=== PATIENT | male | born 1935 | race Caucasian/White ===

== ENCOUNTER 2020-07-18 15:33 | Emergency (ER) | payer MEDICARE, BC ==
[2020-07-18 16:57] LABS: CHLORIDE,CL 103 mmol/L (98-107); SODIUM,NA 140 mmol/L (136-145)
--- NOTE | 2020-07-18 17:17 | EDM.PDOC ---
ED HPI GENERAL MEDICAL PROBLEM - General Chief Complaint: Lower Extremity Injury/Pain Stated Complaint: swollen leg Time Seen by Provider: 07/18/20 15:45 Source of Information: Reports: Patient History Limitations: Reports: No Limitations - History of Present Illness INITIAL COMMENTS - FREE TEXT/NARRATIVE: Pt presents for swelling in RLE No trauma No fever Began about 4 days ago Had appointment tomorrow but assisted living nurse told him to come to ER today Onset: Gradual Duration: Day(s): Location: Reports: Lower Extremity, Right Severity: Moderate - Related Data Allergies Allergy/AdvReac Type Severity Reaction Status Date / Time hydrocodone Allergy Rash Verified 07/18/20 15:35 Home Meds: Home Meds Aspirin [Halfprin] 81 mg PO DAILY 09/26/14 [History] Calc/D3/Mag/Zn/[place]/Franc[place]/Cascade [Calcium 600 MG Plus Vit D] 1 tab PO BID 09/26/14 [History] Flaxseed [Flaxseed Oil] 1,000 mg PO DAILY 09/26/14 [History] Furosemide [Lasix] 40 mg PO DAILY 09/26/14 [History] Lisinopril 2.5 mg PO DAILY 09/26/14 [History] Lutein/Min/Vit C/Vit E Acetate [Ocuvite Lutein] 1 cap PO DAILY 09/26/14 [History] Metoprolol Succinate [Toprol Xl] 25 mg PO DAILY 09/26/14 [History] Multivitamin [Multi-Vitamin Daily] 1 tab PO DAILY 09/26/14 [History] Nitroglycerin [Nitrostat] 1 tab SL ASDIRECTED PRN 09/26/14 [History] [place]-3 Fatty Acids [[place]-3] 1,000 mg PO BID 09/26/14 [History] Ubidecarenone [Coenzyme Q10] 100 mg pe PO BID 09/26/14 [History] Acetaminophen [Tylenol Extra Strength] 500 mg PO BID 07/18/20 [History] Gabapentin [Neurontin] 100 mg PO DAILY 07/18/20 [History] Levothyroxine Sodium [Synthroid] 75 mcg PO DAILY 07/18/20 [History] Omeprazole Magnesium [Prilosec Otc] 20 mg PO DAILY 07/18/20 [History] Rivaroxaban [Xarelto] 20 mg PO DAILY 07/18/20 [History] atorvaSTATin Calcium [Lipitor] 40 mg PO DAILY 07/18/20 [History] Social & Family History - Tobacco Use Smoking Status *Q: Never Smoker Second Hand Smoke Exposure: No - Caffeine Use Caffeine Use: Reports: Coffee Other Caffeine Use: 1 cup daily - Recreational Drug Use Recreational Drug Use: No Review of Systems - Review of Systems Review Of Systems: See Below Constitutional: Reports: No Symptoms Respiratory: Reports: No Symptoms Cardiovascular: Reports: No Symptoms GI/Abdominal: Reports: No Symptoms Musculoskeletal: Reports: Other (RLW swelling) ED EXAM, GENERAL - Physical Exam Exam: See Below General Appearance: Alert, WD/WN, No Apparent Distress Respiratory/Chest: Lungs Clear Cardiovascular: Regular Rate, Rhythm Extremities: Pedal Edema, Other (RLE with edema No erythema No open areas No skin lesions non-tender) Course - Vital Signs Last Recorded V/S: Last Vital Signs Temp 97.9 F 07/18/20 15:49 Pulse 85 07/18/20 15:49 Resp 20 07/18/20 15:49 BP 150/72 H 07/18/20 15:49 Pulse Ox 97 07/18/20 15:49 - Orders/Labs/Meds Orders: Active Orders 24 hr Category Date Time Status Venous Doppler Lwr Ext Rt [US] Stat Exams 07/19/20 10:30 Ordered Labs: Laboratory Tests 07/18/20 07/18/20 Range/Units 16:30 16:30 WBC 6.2 (4.0-10.2) K/uL RBC 3.84 L (4.33-5.41) M/uL Hgb 12.0 L D (13.1-16.8) g/dL Hct 36.8 L (39.0-49.0) % MCV 95.8 D (84.0-98.0) fL MCH 31.3 (28.2-33.3) pg MCHC 32.6 (31.7-36.0) g/dL RDW 14.2 H (11.2-14.1) % Plt Count 123 L D (150-350) K/uL Neut % (Auto) 69.6 (45.0-80.0) % Lymph % (Auto) 14.6 (10.0-50.0) % [place] % (Auto) 13.0 (2.0-14.0) % Eos % (Auto) 2.2 (0.0-5.0) % Baso % (Auto) 0.6 (0.0-2.0) % Neut # (Auto) 4.34 (1.40-7.00) K/uL Lymph # (Auto) 0.91 (0.50-3.50) K/uL [place] # (Auto) 0.81 (0.00-1.00) K/uL Eos # (Auto) 0.14 (0.00-0.50) K/uL Baso # (Auto) 0.04 (0.00-0.20) K/uL Sodium 140 (136-145) mmol/L Potassium 4.0 (3.5-5.1) mmol/L Chloride 103 (98-107) mmol/L Carbon Dioxide 28.0 (21.0-32.0) mmol/L BUN 28 H (7-18) mg/dL Creatinine 0.94 (0.51-1.17) mg/dL Est Cr Clr Drug Dosing 61.19 mL/min Estimated GFR (MDRD) > 60 mL/min Glucose 154 H (74-106) mg/dL Calcium 9.1 (8.5-10.1) mg/dL Total Bilirubin 0.8 (0.2-1.0) mg/dL AST 19 (15-37) U/L ALT 21 (12-78) U/L Alkaline Phosphatase 60 (46-116) IU/L Total Protein 6.6 (6.4-8.2) g/dL Albumin 3.3 L (3.4-5.0) g/dL - Re-Assessments/Exams Free Text/Narrative Re-Assessment/Exam: 07/18/20 17:15 Pt stable in ER See lab RLE US scheduled for tomorrow 10:30 AM Departure - Departure Time of Disposition: 17:20 Disposition: Home, Self-Care 01 Clinical Impression: Right leg swelling - Discharge Information *PRESCRIPTION DRUG MONITORING PROGRAM REVIEWED*: Not Applicable *COPY OF PRESCRIPTION DRUG MONITORING REPORT IN PATIENT ELI: Not Applicable Referrals: Eden Huff NP [Primary Care Provider] - Additional Instructions: To Xray in AM for US of RLE Sepsis Event Note (ED) - Evaluation Sepsis Screening Result: No Definite Risk - Focused Exam Vital Signs: Vital Signs Temp Pulse Resp BP Pulse Ox 07/18/20 15:49 97.9 F 85 20 150/72 H 97 - My Orders Last 24 Hours: My Active Orders 07/19/20 10:30 Venous Doppler Lwr Ext Rt [US] Stat - Assessment/Plan Last 24 Hours: My Active Orders 07/19/20 10:30 Venous Doppler Lwr Ext Rt [US] Stat
== END 2020-07-18 17:27 | disposition home or self-care (01) ==
LOC: LL.ED 15:33
DX: M79.89 Other specified soft tissue disorders (principal); Z88.5 Allergy status to narcotic agent; Z79.82 Long term (current) use of aspirin; Z79.899 Other long term (current) drug therapy; Z79.01 Long term (current) use of anticoagulants
CPT/HCPCS: 36415; 80053; 85025; 99283

== ENCOUNTER 2020-09-11 12:32 | Inpatient (IN) | payer MEDICARE, BC ==
--- NOTE | 2020-09-11 12:52 | EDM.PDOC ---
ED HPI GENERAL MEDICAL PROBLEM - General Chief Complaint: Respiratory Problem Stated Complaint: RESPIRATORY/COVID + Time Seen by Provider: 09/11/20 12:43 Source of Information: Reports: Patient, EMS, Family History Limitations: Reports: Other (Does respond to questions/prefers to keep eyes shut/hard of hearing) - History of Present Illness INITIAL COMMENTS - FREE TEXT/NARRATIVE: Patient comes to us from [facility] with history of recently diagnosed Covid infection. Experiencing worsening respiratory complaints/SOB. Patient is DNR/DNI when asked about code status. Hard of hearing. Complains of some back pain Daughters report that patient felt well two nights ago. He started to complain of some back pain and GI upset yesterday. Did not complain of SOB/cough/fever. No URI complaints. No emesis/loose stools. No new pain complaints otherwise. No observed confusion. - Related Data Allergies Allergy/AdvReac Type Severity Reaction Status Date / Time hydrocodone Allergy Other Verified 09/11/20 13:19 Home Meds: Home Meds Acetaminophen [Tylenol] 2 tab PO DAILY 09/11/20 [History] Flaxseed Oil [Flaxseed] 1 cap PO DAILY 09/11/20 [History] Lutein/Min/Vit C/Vit E Acetate [Ocuvite Lutein] 1 cap PO DAILY 09/11/20 [History] Metoprolol Succinate [Toprol XL] 1 tab PO 09/11/20 [History] Multivitamin [Daily Multiple Vitamin] 1 tab PO DAILY 09/11/20 [History] atorvaSTATin Calcium [Lipitor] 1 tab PO BEDTIME 09/11/20 [History] lisinopriL [Lisinopril] 1 tab PO DAILY 09/11/20 [History] Past Medical History Cardiovascular History: Reports: Arrhythmia, CAD, Cardiomyopathy, Heart Failure, High Cholesterol, Hypertension, Pacemaker Gastrointestinal History: Reports: GERD Genitourinary History: Reports: Chronic Renal Insuffiency Musculoskeletal History: Reports: Back Pain, Chronic (lumbar stenosis), Osteoarthritis Endocrine/Metabolic History: Reports: Hypothyroidism Oncologic (Cancer) History: Reports: Basal Cell Carcinoma, Prostate - Past Surgical History Other Surgical History Comment: Ventral hernia repair, ieostomy, right colectomy, lumbar laminectomy, cataract, carpal tunnel, trigger finger, knee replacement, pacemaker, biceps tendon rupture, basal cell eyelid ED ROS GENERAL - Review of Systems Review Of Systems: Comprehensive ROS is negative, except as noted in HPI. ED EXAM, GENERAL - Physical Exam Exam: See Below Exam Limited By: No Limitations General Appearance: Other (awake/answers questions, increased rate breathing noted) Eye Exam: Bilateral Eye: EOMI, PERRL Ears: Hearing Loss Nose: No: Nasal Deformity, Nasal Swelling, Nasal Drainage Throat/Mouth: Normal Lips, Normal Voice, No Airway Compromise Head: Atraumatic, Normocephalic Neck: Supple Respiratory/Chest: Respiratory Distress (mild), Decreased Breath Sounds (throughout), Crackles (faint/bilat). No: Rhonchi, Wheezing, Stridor, Retractions Cardiovascular: No Edema, No Murmur, Tachycardia Peripheral Pulses: 1+: Radial (L), Radial (R) GI/Abdominal: Soft, Non-Tender, No Distention (Male) Exam: Deferred Rectal (Males) Exam: Deferred Back Exam: No: CVA Tenderness (L), CVA Tenderness (R), Muscle Spasm Extremities: Non-Tender, No Pedal Edema Neurological: Alert, Other (appears to move all 4 limbs equally overall. Has brace left lower leg. Answers questions appropriately) Psychiatric: Normal Affect, Normal Mood Skin Exam: Warm, Dry, Intact, Normal Color Course - Vital Signs Last Recorded V/S: Last Vital Signs Temp 38.3 C H 09/11/20 12:32 Pulse 108 H 09/11/20 12:47 Resp 28 H 09/11/20 12:47 BP 112/56 L 09/11/20 12:47 Pulse Ox 94 L 09/11/20 12:47 - Orders/Labs/Meds Orders: Active Orders 24 hr Category Date Time Status ABG [RT Arterial Blood Gases, ABG] [RC] ASDIRECTED Care 09/11/20 14:02 Ordered Mckeon Catheter Insertion [Insert Urinary Catheter] [OM. Care 09/11/20 13:15 Ordered PC] Q24H Urinary Catheter Assessment [RC] ASDIRECTED Care 09/11/20 13:14 Ordered Chest 1V Frontal [CR] Stat Exams 09/11/20 12:44 Ordered CULTURE BLOOD [BC] Stat Lab 09/11/20 12:45 Ordered CULTURE BLOOD [BC] Stat Lab 09/11/20 12:50 Received Sodium Chloride 0.9% [Saline Flush] Med 09/11/20 12:44 Active 10 ml FLUSH ASDIRECTED PRN Blood Culture x2 Reflex Set [OM.PC] Stat Oth 09/11/20 12:45 Ordered Saline Lock Insert [OM.PC] Stat Oth 09/11/20 12:44 Ordered Medication Orders Sodium Chloride (Saline Flush) 10 ml FLUSH ASDIRECTED PRN PRN Reason: Keep Vein Open Last Admin: 09/11/20 15:00 Dose: 10 ml Documented by: Admin: 09/11/20 13:45 Dose: 10 ml Documented by: COURTNEY Labs: Laboratory Tests 09/11/20 09/11/20 09/11/20 Range/Units 12:44 12:44 12:44 WBC 2.8 L (4.0-10.2) K/uL RBC 4.96 (4.33-5.41) M/uL Hgb 15.2 (13.1-16.8) g/dL Hct 46.8 (39.0-49.0) % MCV 94.4 (84.0-98.0) fL MCH 30.6 (28.2-33.3) pg MCHC 32.5 (31.7-36.0) g/dL RDW 14.5 H (11.2-14.1) % Plt Count 76 L (150-350) K/uL Neut % (Auto) 97.1 H (45.0-80.0) % Lymph % (Auto) 2.5 L (10.0-50.0) % [place] % (Auto) 0.4 L (2.0-14.0) % Eos % (Auto) 0.0 (0.0-5.0) % Baso % (Auto) 0.0 (0.0-2.0) % Neut # (Auto) 2.70 (1.40-7.00) K/uL Lymph # (Auto) 0.07 L (0.50-3.50) K/uL [place] # (Auto) 0.01 (0.00-1.00) K/uL Eos # (Auto) 0.00 (0.00-0.50) K/uL Baso # (Auto) 0.00 (0.00-0.20) K/uL PT 14.1 H (9.5-12.0) SEC INR 1.4 D-Dimer, Quantitative (0-400) ng/mL POC ABG pH (7.35-7.45) pH POC ABG pCO2 (35-48) mmHg POC ABG pO2 (83-108) mmHg POC ABG HCO3 (22-26) mmol/L POC ABG Total CO2 (23-27) mmol/L POC ABG O2 Sat (95-98) % POC ABG Base Excess (-2-3) mmol/L O2 Delivery Device Oxygen Flow Rate Sodium (136-145) mmol/L Potassium (3.5-5.1) mmol/L Chloride (98-107) mmol/L Carbon Dioxide (21.0-32.0) mmol/L BUN (7-18) mg/dL Creatinine (0.51-1.17) mg/dL Est Cr Clr Drug Dosing Estimated GFR (MDRD) mL/min Glucose (74-106) mg/dL Lactic Acid (0.4-2.0) mmol/L Calcium (8.5-10.1) mg/dL Magnesium (1.8-2.4) mg/dL Total Bilirubin (0.2-1.0) mg/dL AST (15-37) U/L ALT (12-78) U/L Alkaline Phosphatase (46-116) IU/L NT-Pro-B Natriuret Pep (0-125) pg/mL Total Protein (6.4-8.2) g/dL Albumin (3.4-5.0) g/dL Specimen Type Urinblad Urine Color Yellow Urine Appearance Clear Urine pH 5.0 (5.0-9.0) Ur Specific Downs 1.015 (1.005-1.030) Urine Protein 100 H (NEGATIVE) mg/dL Urine Glucose (UA) Negative (NEGATIVE) mg/dL Urine Ketones Negative (NEGATIVE) mg/dL Urine Occult Blood Small H (NEGATIVE) Urine Nitrite Negative (NEGATIVE) Urine Bilirubin Negative (NEGATIVE) Urine Urobilinogen 0.2 (0.2-1.0) E.U./dL Ur Leukocyte Esterase Negative (NEGATIVE) Urine RBC 0-5 /HPF Urine WBC Not seen /HPF Ur Epithelial Cells Rare /LPF Urine Bacteria Rare (NONE TO FEW) /HPF 10/19/20 10/19/20 10/19/20 Range/Units 12:44 12:44 12:44 WBC (4.0-10.2) K/uL RBC (4.33-5.41) M/uL Hgb (13.1-16.8) g/dL Hct (39.0-49.0) % MCV (84.0-98.0) fL MCH (28.2-33.3) pg MCHC (31.7-36.0) g/dL RDW (11.2-14.1) % Plt Count (150-350) K/uL Neut % (Auto) (45.0-80.0) % Lymph % (Auto) (10.0-50.0) % [place] % (Auto) (2.0-14.0) % Eos % (Auto) (0.0-5.0) % Baso % (Auto) (0.0-2.0) % Neut # (Auto) (1.40-7.00) K/uL Lymph # (Auto) (0.50-3.50) K/uL [place] # (Auto) (0.00-1.00) K/uL Eos # (Auto) (0.00-0.50) K/uL Baso # (Auto) (0.00-0.20) K/uL PT (9.5-12.0) SEC INR D-Dimer, Quantitative 2660 H (0-400) ng/mL POC ABG pH (7.35-7.45) pH POC ABG pCO2 (35-48) mmHg POC ABG pO2 (83-108) mmHg POC ABG HCO3 (22-26) mmol/L POC ABG Total CO2 (23-27) mmol/L POC ABG O2 Sat (95-98) % POC ABG Base Excess (-2-3) mmol/L O2 Delivery Device Oxygen Flow Rate Sodium 139 (136-145) mmol/L Potassium 3.6 (3.5-5.1) mmol/L Chloride 100 (98-107) mmol/L Carbon Dioxide 19.1 L (21.0-32.0) mmol/L BUN 25 H (7-18) mg/dL Creatinine 1.05 (0.51-1.17) mg/dL Est Cr Clr Drug Dosing TNP Estimated GFR (MDRD) > 60 mL/min Glucose 111 H (74-106) mg/dL Lactic Acid 9.0 H (0.4-2.0) mmol/L Calcium 9.4 (8.5-10.1) mg/dL Magnesium 1.5 L (1.8-2.4) mg/dL Total Bilirubin 2.0 H (0.2-1.0) mg/dL AST 28 (15-37) U/L ALT 26 (12-78) U/L Alkaline Phosphatase 118 H (46-116) IU/L NT-Pro-B Natriuret Pep 13008 H (0-125) pg/mL Total Protein 6.9 (6.4-8.2) g/dL Albumin 3.3 L (3.4-5.0) g/dL Specimen Type Urine Color Urine Appearance Urine pH (5.0-9.0) Ur Specific Downs (1.005-1.030) Urine Protein (NEGATIVE) mg/dL Urine Glucose (UA) (NEGATIVE) mg/dL Urine Ketones (NEGATIVE) mg/dL Urine Occult Blood (NEGATIVE) Urine Nitrite (NEGATIVE) Urine Bilirubin (NEGATIVE) Urine Urobilinogen (0.2-1.0) E.U./dL Ur Leukocyte Esterase (NEGATIVE) Urine RBC /HPF Urine WBC /HPF Ur Epithelial Cells /LPF Urine Bacteria (NONE TO FEW) /HPF 09/11/20 Range/Units 12:50 WBC (4.0-10.2) K/uL RBC (4.33-5.41) M/uL Hgb (13.1-16.8) g/dL Hct (39.0-49.0) % MCV (84.0-98.0) fL MCH (28.2-33.3) pg MCHC (31.7-36.0) g/dL RDW (11.2-14.1) % Plt Count (150-350) K/uL Neut % (Auto) (45.0-80.0) % Lymph % (Auto) (10.0-50.0) % [place] % (Auto) (2.0-14.0) % Eos % (Auto) (0.0-5.0) % Baso % (Auto) (0.0-2.0) % Neut # (Auto) (1.40-7.00) K/uL Lymph # (Auto) (0.50-3.50) K/uL [place] # (Auto) (0.00-1.00) K/uL Eos # (Auto) (0.00-0.50) K/uL Baso # (Auto) (0.00-0.20) K/uL PT (9.5-12.0) SEC INR D-Dimer, Quantitative (0-400) ng/mL POC ABG pH 7.5 H (7.35-7.45) pH POC ABG pCO2 23 L* (35-48) mmHg POC ABG pO2 72 L* (83-108) mmHg POC ABG HCO3 18.3 L (22-26) mmol/L POC ABG Total CO2 18.5 L (23-27) mmol/L POC ABG O2 Sat 96.1 (95-98) % POC ABG Base Excess -3 L (-2-3) mmol/L O2 Delivery Device Nasal cannula Oxygen Flow Rate 4 Sodium (136-145) mmol/L Potassium (3.5-5.1) mmol/L Chloride (98-107) mmol/L Carbon Dioxide (21.0-32.0) mmol/L BUN (7-18) mg/dL Creatinine (0.51-1.17) mg/dL Est Cr Clr Drug Dosing Estimated GFR (MDRD) mL/min Glucose (74-106) mg/dL Lactic Acid (0.4-2.0) mmol/L Calcium (8.5-10.1) mg/dL Magnesium (1.8-2.4) mg/dL Total Bilirubin (0.2-1.0) mg/dL AST (15-37) U/L ALT (12-78) U/L Alkaline Phosphatase (46-116) IU/L NT-Pro-B Natriuret Pep (0-125) pg/mL Total Protein (6.4-8.2) g/dL Albumin (3.4-5.0) g/dL Specimen Type Urine Color Urine Appearance Urine pH (5.0-9.0) Ur Specific Downs (1.005-1.030) Urine Protein (NEGATIVE) mg/dL Urine Glucose (UA) (NEGATIVE) mg/dL Urine Ketones (NEGATIVE) mg/dL Urine Occult Blood (NEGATIVE) Urine Nitrite (NEGATIVE) Urine Bilirubin (NEGATIVE) Urine Urobilinogen (0.2-1.0) E.U./dL Ur Leukocyte Esterase (NEGATIVE) Urine RBC /HPF Urine WBC /HPF Ur Epithelial Cells /LPF Urine Bacteria (NONE TO FEW) /HPF Meds: Medications Generic Name Dose Route Start Last Admin Trade Name Freq PRN Reason Stop Dose Admin Sodium Chloride 10 ml 09/11/20 12:44 09/11/20 15:00 Saline Flush FLUSH 10 ml ASDIRECTED PRN Administration Keep Vein Open Discontinued Medications Generic Name Dose Route Start Last Admin Trade Name Freq PRN Reason Stop Dose Admin Furosemide 20 mg 09/11/20 13:15 09/11/20 13:45 Lasix IVPUSH 09/11/20 13:16 20 mg ONETIME ONE Administration Sodium Chloride 250 mls @ 999 mls/hr 09/11/20 13:15 09/11/20 13:44 Normal Saline IV 09/11/20 13:30 999 mls/hr ONETIME ONE Administration Magnesium Sulfate/Dextrose 1 100 mls @ 100 mls/hr 09/11/20 13:19 09/11/20 14:08 gm/ Premix IV 09/11/20 14:18 100 mls/hr ONETIME ONE Administration Methylprednisolone Sodium Succinate 125 mg 09/11/20 13:15 09/11/20 13:45 Solu-Medrol IVPUSH 09/11/20 13:16 125 mg ONETIME ONE Administration - Re-Assessments/Exams Free Text/Narrative Re-Assessment/Exam: 09/11/20 15:54 Chest xray taken which showed cardiomegaly/some CHF. No obvious focal pneumonia identified. WBC low. DDimer elevated. Is on Xarelto. Platelets 76 Normal Hgb. ProBNP over 15,000 Lactic elevated at 9.0 Mag low at 1.5 Total bili 2.0 O2 sats stayed in low 90s on 2-4L NC BP noted to be low. Tachycardic. Discussed treatment options with patient. He made it clear that he did not want to be transferred to [place]. He wished for comfort care. This was confirmed with patient's two daughters. Call placed to [facility] and patient reviewed with /hospitalist. He felt that patient has developed cardiac effects from the Covid infection and that has diminished his already poor cardiac function which is now being manifested as cardiogenic shock/failure. He felt that there were minimal options other than to consider stating a pressor. Cautious administration of Lasix could also be considered. This was discussed with the patient, who declined pressor intervention. Suspect elevated DDimer is from his CHF and Covid infection, however cannot rule out PE being present, even if patient is on Eliquis and has thrombocytopenia. Patient declined scanning at this time. Plan is to admit for comfort care/cautious diuresis. Departure - Departure Time of Disposition: 15:00 Disposition: Admitted As Inpatient 66 Condition: Poor Clinical Impression: CHF (congestive heart failure), COVID-19 - Discharge Information *PRESCRIPTION DRUG MONITORING PROGRAM REVIEWED*: Not Applicable *COPY OF PRESCRIPTION DRUG MONITORING REPORT IN PATIENT ELI: Not Applicable Forms: ED Department Discharge Sepsis Event Note (ED) - Focused Exam Vital Signs: Vital Signs Temp Pulse Resp BP Pulse Ox 09/11/20 12:47 108 H 28 H 112/56 L 94 L 09/11/20 12:32 38.3 C H 105 H 30 H 105/54 L 91 L - Problem List & Annotations (1) CHF (congestive heart failure) SNOMED Code(s): 21745749 Code(s): I50.9 - HEART FAILURE, UNSPECIFIED Status: Acute Priority: High Current Visit: Yes Annotation/Comment:: Suspected acute ecacerbation secondary to current Covid infection/myocarditis and threatening cardiogenic shock/failure. Comfort Care desired by patient. Low BPs would likely be exacerbated by any aggressive diuresis. Cautious 20mg dose given in ER with single additional dose scheduled for tonight. Receiving O2 via NC. Care plan reviewed with at [facility]/Hospitalist. Qualifiers: Heart failure type: unspecified Heart failure chronicity: acute on chronic Qualified Code(s): I50.9 - Heart failure, unspecified (2) COVID-19 SNOMED Code(s): 840871504 Code(s): U07.1 - COVID-19 Status: Acute Priority: High Current Visit: Yes Annotation/Comment:: Patient has recent diagnosis of Covid-19. Was tested at end of last week. Did not start to feel poorly until yesterday. No pattern consistent with Covid pneumonia noted on chest film. Received dose of steroids. Antibiotics not indicated at this time. Is not a candidate for Remdesivir based on chronic medical conditions per guidelines. (3) Comfort measures only status SNOMED Code(s): 92694083950903 Code(s): Z51.5 - ENCOUNTER FOR PALLIATIVE CARE Status: Acute Priority: High Current Visit: Yes Annotation/Comment:: Patient desires comfort measures. Family notified and in agreement. (4) Elevated lactic acid level SNOMED Code(s): 4171860 Code(s): R79.89 - OTHER SPECIFIED ABNORMAL FINDINGS OF BLOOD CHEMISTRY Status: Acute Priority: High Current Visit: Yes Annotation/Comment:: 9.0 at time of admission. (5) Hypomagnesemia SNOMED Code(s): 769922690 Code(s): E83.42 - HYPOMAGNESEMIA Status: Acute Priority: Medium Current Visit: Yes Annotation/Comment:: IV replacement ordered. (6) HTN (hypertension) SNOMED Code(s): 63943734 Code(s): I10 - ESSENTIAL (PRIMARY) HYPERTENSION Status: Acute Priority: Low Current Visit: No Annotation/Comment:: Not active problem at this time. Qualifiers: Hypertension type: essential hypertension Qualified Code(s): I10 - Essential (primary) hypertension (7) Pacemaker SNOMED Code(s): 975583861 Code(s): Z95.0 - PRESENCE OF CARDIAC PACEMAKER Status: Chronic Priority: Low Current Visit: No (8) Osteoarthritis SNOMED Code(s): 505220185 Code(s): M19.90 - UNSPECIFIED OSTEOARTHRITIS, UNSPECIFIED SITE Status: Chronic Priority: Low Current Visit: No Qualifiers: Osteoarthritis location: unspecified site (9) Chronic kidney disease SNOMED Code(s): 870251529 Code(s): N18.9 - CHRONIC KIDNEY DISEASE, UNSPECIFIED Status: Acute Priority: Low Current Visit: Yes Annotation/Comment:: Normal Cr today Qualifiers: Chronic kidney disease stage: stage 3 (moderate) (10) Afib SNOMED Code(s): 37829974 Code(s): I48.91 - UNSPECIFIED ATRIAL FIBRILLATION Status: Chronic Priority: Low Current Visit: No Qualifiers: Atrial fibrillation type: unspecified Qualified Code(s): I48.91 - Unspecified atrial fibrillation (11) Hyperlipidemia SNOMED Code(s): 81690450 Code(s): E78.5 - HYPERLIPIDEMIA, UNSPECIFIED Status: Chronic Priority: Low Current Visit: No Qualifiers: Hyperlipidemia type: unspecified Qualified Code(s): E78.5 - Hyperlipidemia, unspecified - Problem List Review Problem List Initiated/Reviewed/Updated: Yes - My Orders Last 24 Hours: My Active Orders 09/11/20 12:44 Chest 1V Frontal [CR] Stat Sodium Chloride 0.9% [Saline Flush] 10 ml FLUSH ASDIRECTED PRN Saline Lock Insert [OM.PC] Stat 09/11/20 12:45 CULTURE BLOOD [BC] Stat Blood Culture x2 Reflex Set [OM.PC] Stat 09/11/20 12:50 CULTURE BLOOD [BC] Stat 09/11/20 13:14 Urinary Catheter Assessment [RC] ASDIRECTED 09/11/20 13:15 Mckeon Catheter Insertion [Insert Urinary Catheter] [OM.PC] Q24H 09/11/20 14:02 ABG [RT Arterial Blood Gases, ABG] [RC] ASDIRECTED - Assessment/Plan Admission H&P: Please use this note as an admission H&P Last 24 Hours: My Active Orders 09/11/20 12:44 Chest 1V Frontal [CR] Stat Sodium Chloride 0.9% [Saline Flush] 10 ml FLUSH ASDIRECTED PRN Saline Lock Insert [OM.PC] Stat 09/11/20 12:45 CULTURE BLOOD [BC] Stat Blood Culture x2 Reflex Set [OM.PC] Stat 09/11/20 12:50 CULTURE BLOOD [BC] Stat 09/11/20 13:14 Urinary Catheter Assessment [RC] ASDIRECTED 09/11/20 13:15 Mckeon Catheter Insertion [Insert Urinary Catheter] [OM.PC] Q24H 09/11/20 14:02 ABG [RT Arterial Blood Gases, ABG] [RC] ASDIRECTED Assessment:: as above Plan: as above. Prognosis is poor at this time given suspected cardiac involvement and worsening CHF due to acute Covid infection.
[2020-09-11] MEDS ORDERED: Furosemide 20 MG/2 ML VIAL IVPUSH ONE ×2 (13:15→18:00)
[2020-09-11] MEDS ORDERED: Sodium Chloride 0.9% 250 ML IV ONE (13:15)
[2020-09-11] MEDS ORDERED: methylPREDNISolone Sodium Succinate 125 MG/2 ML SDV IVPUSH ONE (13:15)
[2020-09-11 13:18] LABS: CHLORIDE,CL 100 mmol/L (98-107); SODIUM,NA 139 mmol/L (136-145)
[2020-09-11] MEDS: Sodium Chloride 0.9% 10 ML Syringe FLUSH PRN ×2 (13:45→15:00)
[2020-09-11 14:18] LABS: PCO2 ARTERIAL,POC 23 mmHg (35-48)
[2020-09-11] MEDS ORDERED: Morphine 2 MG/ML SYRINGE IVPUSH PRN (16:00)
[2020-09-11] MEDS ORDERED: Ondansetron 4 MG/2 ML SDV IVPUSH PRN (16:00)
[2020-09-11] MEDS: atorvaSTATin 40 MG Tab PO SCH (20:44)
[2020-09-11] MEDS ORDERED: Bisacodyl 10 MG Supp RECTAL ONE (23:24)
[2020-09-12] MEDS: Dexamethasone 10 MG/ML SDV IVPUSH SCH (07:59)
[2020-09-12] MEDS: Acetaminophen 325 MG Tab PO SCH (07:59)
[2020-09-12] MEDS: Sodium Chloride 0.9% 10 ML Syringe FLUSH PRN (08:00)
--- NOTE | 2020-09-12 11:26 | PCM.PN ---
- General Info Date of Service: 09/12/20 Functional Status: Reports: Pain Controlled - Review of Systems General: Reports: Fever, Weakness Pulmonary: Reports: Shortness of Breath, Cough Cardiovascular: Reports: No Symptoms Gastrointestinal: Reports: No Symptoms - Patient Data Vitals - Most Recent: Last Vital Signs Temp 98.3 F 09/12/20 07:58 Pulse 105 H 09/12/20 07:58 Resp 18 09/12/20 07:58 BP 73/49 L 09/11/20 20:13 Pulse Ox 92 L 09/12/20 07:58 Weight - Most Recent: 230 lb I&O - Last 24 Hours: Intake & Output 09/12/20 09/12/20 09/12/20 02:59 10:59 18:59 Intake Total 50 600 Balance 50 600 Lab Results Last 24 Hours: Laboratory Results - last 24 hr 09/11/20 09/11/20 09/11/20 Range/Units 12:44 12:44 12:44 WBC 2.8 L (4.0-10.2) K/uL RBC 4.96 (4.33-5.41) M/uL Hgb 15.2 (13.1-16.8) g/dL Hct 46.8 (39.0-49.0) % MCV 94.4 (84.0-98.0) fL MCH 30.6 (28.2-33.3) pg MCHC 32.5 (31.7-36.0) g/dL RDW 14.5 H (11.2-14.1) % Plt Count 76 L (150-350) K/uL Neut % (Auto) 97.1 H (45.0-80.0) % Lymph % (Auto) 2.5 L (10.0-50.0) % [place] % (Auto) 0.4 L (2.0-14.0) % Eos % (Auto) 0.0 (0.0-5.0) % Baso % (Auto) 0.0 (0.0-2.0) % Neut # (Auto) 2.70 (1.40-7.00) K/uL Lymph # (Auto) 0.07 L (0.50-3.50) K/uL [place] # (Auto) 0.01 (0.00-1.00) K/uL Eos # (Auto) 0.00 (0.00-0.50) K/uL Baso # (Auto) 0.00 (0.00-0.20) K/uL PT 14.1 H (9.5-12.0) SEC INR 1.4 D-Dimer, Quantitative (0-400) ng/mL POC ABG pH (7.35-7.45) pH POC ABG pCO2 (35-48) mmHg POC ABG pO2 (83-108) mmHg POC ABG HCO3 (22-26) mmol/L POC ABG Total CO2 (23-27) mmol/L POC ABG O2 Sat (95-98) % POC ABG Base Excess (-2-3) mmol/L O2 Delivery Device Oxygen Flow Rate Sodium (136-145) mmol/L Potassium (3.5-5.1) mmol/L Chloride (98-107) mmol/L Carbon Dioxide (21.0-32.0) mmol/L BUN (7-18) mg/dL Creatinine (0.51-1.17) mg/dL Est Cr Clr Drug Dosing Estimated GFR (MDRD) mL/min Glucose (74-106) mg/dL Lactic Acid (0.4-2.0) mmol/L Calcium (8.5-10.1) mg/dL Magnesium (1.8-2.4) mg/dL Total Bilirubin (0.2-1.0) mg/dL AST (15-37) U/L ALT (12-78) U/L Alkaline Phosphatase (46-116) IU/L NT-Pro-B Natriuret Pep (0-125) pg/mL Total Protein (6.4-8.2) g/dL Albumin (3.4-5.0) g/dL TSH, Ultra Sensitive (0.358-3.740) mIU/mL Specimen Type Urinblad Urine Color Yellow Urine Appearance Clear Urine pH 5.0 (5.0-9.0) Ur Specific [place] 1.015 (1.005-1.030) Urine Protein 100 H (NEGATIVE) mg/dL Urine Glucose (UA) Negative (NEGATIVE) mg/dL Urine Ketones Negative (NEGATIVE) mg/dL Urine Occult Blood Small H (NEGATIVE) Urine Nitrite Negative (NEGATIVE) Urine Bilirubin Negative (NEGATIVE) Urine Urobilinogen 0.2 (0.2-1.0) E.U./dL Ur Leukocyte Esterase Negative (NEGATIVE) Urine RBC 0-5 /HPF Urine WBC Not seen /HPF Ur Epithelial Cells Rare /LPF Urine Bacteria Rare (NONE TO FEW) /HPF 09/11/20 09/11/20 09/11/20 Range/Units 12:44 12:44 12:44 WBC (4.0-10.2) K/uL RBC (4.33-5.41) M/uL Hgb (13.1-16.8) g/dL Hct (39.0-49.0) % MCV (84.0-98.0) fL MCH (28.2-33.3) pg MCHC (31.7-36.0) g/dL RDW (11.2-14.1) % Plt Count (150-350) K/uL Neut % (Auto) (45.0-80.0) % Lymph % (Auto) (10.0-50.0) % [place] % (Auto) (2.0-14.0) % Eos % (Auto) (0.0-5.0) % Baso % (Auto) (0.0-2.0) % Neut # (Auto) (1.40-7.00) K/uL Lymph # (Auto) (0.50-3.50) K/uL [place] # (Auto) (0.00-1.00) K/uL Eos # (Auto) (0.00-0.50) K/uL Baso # (Auto) (0.00-0.20) K/uL PT (9.5-12.0) SEC INR D-Dimer, Quantitative 2660 H (0-400) ng/mL POC ABG pH (7.35-7.45) pH POC ABG pCO2 (35-48) mmHg POC ABG pO2 (83-108) mmHg POC ABG HCO3 (22-26) mmol/L POC ABG Total CO2 (23-27) mmol/L POC ABG O2 Sat (95-98) % POC ABG Base Excess (-2-3) mmol/L O2 Delivery Device Oxygen Flow Rate Sodium 139 (136-145) mmol/L Potassium 3.6 (3.5-5.1) mmol/L Chloride 100 (98-107) mmol/L Carbon Dioxide 19.1 L (21.0-32.0) mmol/L BUN 25 H (7-18) mg/dL Creatinine 1.05 (0.51-1.17) mg/dL Est Cr Clr Drug Dosing TNP Estimated GFR (MDRD) > 60 mL/min Glucose 111 H (74-106) mg/dL Lactic Acid 9.0 H (0.4-2.0) mmol/L Calcium 9.4 (8.5-10.1) mg/dL Magnesium 1.5 L (1.8-2.4) mg/dL Total Bilirubin 2.0 H (0.2-1.0) mg/dL AST 28 (15-37) U/L ALT 26 (12-78) U/L Alkaline Phosphatase 118 H (46-116) IU/L NT-Pro-B Natriuret Pep 52294 H (0-125) pg/mL Total Protein 6.9 (6.4-8.2) g/dL Albumin 3.3 L (3.4-5.0) g/dL TSH, Ultra Sensitive (0.358-3.740) mIU/mL Specimen Type Urine Color Urine Appearance Urine pH (5.0-9.0) Ur Specific [place] (1.005-1.030) Urine Protein (NEGATIVE) mg/dL Urine Glucose (UA) (NEGATIVE) mg/dL Urine Ketones (NEGATIVE) mg/dL Urine Occult Blood (NEGATIVE) Urine Nitrite (NEGATIVE) Urine Bilirubin (NEGATIVE) Urine Urobilinogen (0.2-1.0) E.U./dL Ur Leukocyte Esterase (NEGATIVE) Urine RBC /HPF Urine WBC /HPF Ur Epithelial Cells /LPF Urine Bacteria (NONE TO FEW) /HPF 09/11/20 09/11/20 Range/Units 12:44 12:50 WBC (4.0-10.2) K/uL RBC (4.33-5.41) M/uL Hgb (13.1-16.8) g/dL Hct (39.0-49.0) % MCV (84.0-98.0) fL MCH (28.2-33.3) pg MCHC (31.7-36.0) g/dL RDW (11.2-14.1) % Plt Count (150-350) K/uL Neut % (Auto) (45.0-80.0) % Lymph % (Auto) (10.0-50.0) % [place] % (Auto) (2.0-14.0) % Eos % (Auto) (0.0-5.0) % Baso % (Auto) (0.0-2.0) % Neut # (Auto) (1.40-7.00) K/uL Lymph # (Auto) (0.50-3.50) K/uL [place] # (Auto) (0.00-1.00) K/uL Eos # (Auto) (0.00-0.50) K/uL Baso # (Auto) (0.00-0.20) K/uL PT (9.5-12.0) SEC INR D-Dimer, Quantitative (0-400) ng/mL POC ABG pH 7.5 H (7.35-7.45) pH POC ABG pCO2 23 L* (35-48) mmHg POC ABG pO2 72 L* (83-108) mmHg POC ABG HCO3 18.3 L (22-26) mmol/L POC ABG Total CO2 18.5 L (23-27) mmol/L POC ABG O2 Sat 96.1 (95-98) % POC ABG Base Excess -3 L (-2-3) mmol/L O2 Delivery Device Nasal cannula Oxygen Flow Rate 4 Sodium (136-145) mmol/L Potassium (3.5-5.1) mmol/L Chloride (98-107) mmol/L Carbon Dioxide (21.0-32.0) mmol/L BUN (7-18) mg/dL Creatinine (0.51-1.17) mg/dL Est Cr Clr Drug Dosing Estimated GFR (MDRD) mL/min Glucose (74-106) mg/dL Lactic Acid (0.4-2.0) mmol/L Calcium (8.5-10.1) mg/dL Magnesium (1.8-2.4) mg/dL Total Bilirubin (0.2-1.0) mg/dL AST (15-37) U/L ALT (12-78) U/L Alkaline Phosphatase (46-116) IU/L NT-Pro-B Natriuret Pep (0-125) pg/mL Total Protein (6.4-8.2) g/dL Albumin (3.4-5.0) g/dL TSH, Ultra Sensitive 0.782 (0.358-3.740) mIU/mL Specimen Type Urine Color Urine Appearance Urine pH (5.0-9.0) Ur Specific [place] (1.005-1.030) Urine Protein (NEGATIVE) mg/dL Urine Glucose (UA) (NEGATIVE) mg/dL Urine Ketones (NEGATIVE) mg/dL Urine Occult Blood (NEGATIVE) Urine Nitrite (NEGATIVE) Urine Bilirubin (NEGATIVE) Urine Urobilinogen (0.2-1.0) E.U./dL Ur Leukocyte Esterase (NEGATIVE) Urine RBC /HPF Urine WBC /HPF Ur Epithelial Cells /LPF Urine Bacteria (NONE TO FEW) /HPF Med Orders - Current: Current Medications Acetaminophen (Tylenol) 650 mg PO DAILY [facility] Last Admin: 09/12/20 07:59 Dose: 650 mg Documented by: Atorvastatin Calcium (Lipitor) 40 mg PO BEDTIME [facility] Last Admin: 09/11/20 20:44 Dose: Not Given Documented by: Dexamethasone (Dexamethasone) 6 mg IVPUSH DAILY [facility] Last Admin: 09/12/20 07:59 Dose: 6 mg Documented by: Morphine Sulfate (Morphine) 2 mg IVPUSH Q1H PRN PRN Reason: Shortness of Breath Ondansetron HCl (Zofran) 4 mg IVPUSH Q6H PRN PRN Reason: Nausea/Vomiting Sodium Chloride (Saline Flush) 10 ml FLUSH ASDIRECTED PRN PRN Reason: Keep Vein Open Last Admin: 09/12/20 08:00 Dose: 10 ml Documented by: Discontinued Medications Bisacodyl (Dulcolax) 10 mg RECTAL ONETIME ONE Stop: 09/11/20 23:25 Last Admin: 09/12/20 00:49 Dose: Not Given Documented by: Furosemide (Lasix) 20 mg IVPUSH ONETIME ONE Stop: 09/11/20 13:16 Last Admin: 09/11/20 13:45 Dose: 20 mg Documented by: Furosemide (Lasix) 20 mg IVPUSH ONETIME ONE Stop: 09/11/20 18:01 Last Admin: 09/11/20 18:04 Dose: Not Given Documented by: Sodium Chloride (Normal Saline) 250 mls @ 999 mls/hr IV ONETIME ONE Stop: 09/11/20 13:30 Last Admin: 09/11/20 13:44 Dose: 999 mls/hr Documented by: Magnesium Sulfate/Dextrose 1 (gm/ Premix) 100 mls @ 100 mls/hr IV ONETIME ONE Stop: 09/11/20 14:18 Last Admin: 09/11/20 14:08 Dose: 100 mls/hr Documented by: Magnesium Sulfate/Dextrose 1 (gm/ Premix) 100 mls @ 100 mls/hr IV ONETIME ONE Stop: 09/11/20 16:41 Last Admin: 09/11/20 16:50 Dose: Not Given Documented by: Methylprednisolone Sodium Succinate (Solu-Medrol) 125 mg IVPUSH ONETIME ONE Stop: 09/11/20 13:16 Last Admin: 09/11/20 13:45 Dose: 125 mg Documented by: - Exam Quality Assessment: Supplemental Oxygen Lungs: Decreased Breath Sounds Cardiovascular: Tachycardia Sepsis Event Note - Evaluation Sepsis Screening Result: Severe Sepsis Risk - Focused Exam Vital Signs: Vital Signs Temp Pulse Resp Pulse Ox 09/12/20 07:58 98.3 F 105 H 18 92 L - Problem List Review Problem List Initiated/Reviewed/Updated: Yes - Assessment Assessment:: Imp: Covid positive - Plan Plan:: Plan: continue current cares
[2020-09-12] MEDS: atorvaSTATin 40 MG Tab PO SCH (19:57)
[2020-09-13] MEDS: Menthol/Methyl Salicylate 85 GM Tube TOP PRN ×2 (08:12→19:33)
[2020-09-13] MEDS: Acetaminophen 325 MG Tab PO SCH (08:13)
[2020-09-13] MEDS: Sodium Chloride 0.9% 10 ML Syringe FLUSH PRN ×2 (08:13→19:42)
[2020-09-13] MEDS: Dexamethasone 10 MG/ML SDV IVPUSH SCH (08:13)
--- NOTE | 2020-09-13 12:01 | PCM.PN ---
- General Info Date of Service: 09/13/20 Admission Dx/Problem (Free Text): Nurse's note that pt has increased activity today Functional Status: Reports: Pain Controlled - Review of Systems General: Reports: Weakness Pulmonary: Reports: Shortness of Breath Cardiovascular: Reports: No Symptoms Gastrointestinal: Reports: No Symptoms - Patient Data Vitals - Most Recent: Last Vital Signs Temp 97.4 F 09/13/20 08:11 Pulse 106 H 09/13/20 08:11 Resp 20 09/13/20 08:11 BP 120/8 L 09/13/20 08:11 Pulse Ox 97 09/13/20 08:11 Weight - Most Recent: 230 lb I&O - Last 24 Hours: Intake & Output 09/13/20 09/13/20 09/13/20 02:59 10:59 18:59 Intake Total 300 600 Output Total 600 Balance 300 0 Eric Results Last 24 Hours: Microbiology 09/11/20 12:50 Aerobic Blood Culture - Preliminary Blood - Venous - Lab Draw NO GROWTH AFTER 1 DAY Anaerobic Blood Culture - Preliminary Gram Positive Rods Gram Positive Coccobacillus 09/11/20 12:45 Aerobic Blood Culture - Preliminary Blood - Venous NO GROWTH AFTER 1 DAY Anaerobic Blood Culture - Preliminary NO GROWTH AFTER 1 DAY Med Orders - Current: Current Medications Acetaminophen (Tylenol) 650 mg PO DAILY [facility] Last Admin: 09/13/20 08:13 Dose: 650 mg Documented by: Atorvastatin Calcium (Lipitor) 40 mg PO BEDTIME [facility] Last Admin: 09/12/20 19:57 Dose: 40 mg Documented by: Dexamethasone (Dexamethasone) 6 mg IVPUSH DAILY [facility] Last Admin: 09/13/20 08:13 Dose: 6 mg Documented by: Methyl Salicylate (Icy Hot Cream) 1 gm TOP QID PRN PRN Reason: Pain (mild 1-3) Last Admin: 09/13/20 08:12 Dose: 1 applic Documented by: Morphine Sulfate (Morphine) 2 mg IVPUSH Q1H PRN PRN Reason: Shortness of Breath Ondansetron HCl (Zofran) 4 mg IVPUSH Q6H PRN PRN Reason: Nausea/Vomiting Sodium Chloride (Saline Flush) 10 ml FLUSH ASDIRECTED PRN PRN Reason: Keep Vein Open Last Admin: 09/13/20 08:13 Dose: 10 ml Documented by: Discontinued Medications Bisacodyl (Dulcolax) 10 mg RECTAL ONETIME ONE Stop: 09/11/20 23:25 Last Admin: 09/12/20 00:49 Dose: Not Given Documented by: Furosemide (Lasix) 20 mg IVPUSH ONETIME ONE Stop: 09/11/20 13:16 Last Admin: 09/11/20 13:45 Dose: 20 mg Documented by: Furosemide (Lasix) 20 mg IVPUSH ONETIME ONE Stop: 09/11/20 18:01 Last Admin: 09/11/20 18:04 Dose: Not Given Documented by: Sodium Chloride (Normal Saline) 250 mls @ 999 mls/hr IV ONETIME ONE Stop: 09/11/20 13:30 Last Admin: 09/11/20 13:44 Dose: 999 mls/hr Documented by: Magnesium Sulfate/Dextrose 1 (gm/ Premix) 100 mls @ 100 mls/hr IV ONETIME ONE Stop: 09/11/20 14:18 Last Admin: 09/11/20 14:08 Dose: 100 mls/hr Documented by: Magnesium Sulfate/Dextrose 1 (gm/ Premix) 100 mls @ 100 mls/hr IV ONETIME ONE Stop: 09/11/20 16:41 Last Admin: 09/11/20 16:50 Dose: Not Given Documented by: Methylprednisolone Sodium Succinate (Solu-Medrol) 125 mg IVPUSH ONETIME ONE Stop: 09/11/20 13:16 Last Admin: 09/11/20 13:45 Dose: 125 mg Documented by: - Exam Neck: Supple Lungs: Decreased Breath Sounds Cardiovascular: Regular Rate GI/Abdominal Exam: Soft, Non-Tender Sepsis Event Note - Evaluation Sepsis Screening Result: Severe Sepsis Risk - Focused Exam Vital Signs: Vital Signs Temp Pulse Resp BP Pulse Ox 09/13/20 08:11 97.4 F 106 H 20 120/8 L 97 - Problem List Review Problem List Initiated/Reviewed/Updated: Yes - My Orders Last 24 Hours: My Active Orders 09/13/20 05:42 Menthol/Methyl Salicylate [Icy Hot Cream] 1 gm TOP QID PRN - Assessment Assessment:: Imp: Covid positive - Plan Plan:: Plan: continue current cares Plan: D/C james Increase activity
[2020-09-13] MEDS: Polyvinyl Alcohol 1.4% Ophth Soln 15 ML Bottle EYEBOTH PRN (16:37)
[2020-09-13] MEDS: atorvaSTATin 40 MG Tab PO SCH (19:42)
[2020-09-14] MEDS: Dexamethasone 10 MG/ML SDV IVPUSH SCH (09:05)
[2020-09-14] MEDS: Acetaminophen 325 MG Tab PO SCH (09:05)
--- NOTE | 2020-09-14 09:57 | PCM.PN ---
- General Info Date of Service: 09/14/20 Admission Dx/Problem (Free Text): 1. Sepsis 2. COVID-19 infection 3. CHF Functional Status: Reports: Pain Controlled, Tolerating Diet, Ambulating, Urinating, Incentive Spirometry. Denies: New Symptoms Pain Score: 0 - Review of Systems General: Reports: Weakness (Improved). Denies: Fever, Fatigue, Malaise, Chills, Night Sweats, Appetite (Adequate) HEENT: Reports: Other (Bilateral hearing aids) Pulmonary: Reports: No Symptoms. Denies: Shortness of Breath, Pleuritic Chest Pain, Cough, Sputum, Hemoptysis, Wheezing Cardiovascular: Reports: No Symptoms. Denies: Chest Pain, Palpitations, Dyspnea on Exertion, Orthopnea, PND, Edema, Lightheadedness Gastrointestinal: Reports: No Symptoms, Other (Small bowel movement yesterday). Denies: Abdominal Pain, Constipation, Decreased Appetite, Diarrhea, Difficulty Swallowing, Flatus, Hematochezia, Melena, Nausea, Vomiting Genitourinary: Reports: Incontinence. Denies: Dysuria, Frequency, Burning, Pain, Urgency, Hematuria, Retention, Flank Pain Musculoskeletal: Reports: No Symptoms. Denies: Neck Pain, Shoulder Pain, Arm Pain, Back Pain, Leg Pain Skin: Reports: Bruising (Stable) Neurological: Reports: Weakness (Improved). Denies: Confusion, Dizziness, Headache, Numbness, Paresthesia, Syncope, Tingling - Patient Data Vitals - Most Recent: Last Vital Signs Temp 35.8 C L 09/14/20 08:00 Pulse 88 09/14/20 08:00 Resp 22 H 09/14/20 08:00 BP 143/82 H 09/14/20 08:00 Pulse Ox 98 09/14/20 08:00 Vital Signs - 24 hr 09/13/20 09/14/20 20:00 08:00 Temperature [ 36.3 C 35.8 C L Temporal] Pulse, 93 88 Peripheral [ Pulse Oximetry] Respiratory 14 22 H Rate Blood Pressure 134/86 [Left Upper Arm ] Blood Pressure 143/82 H [Right Upper Arm] O2 Sat by Pulse 96 98 Oximetry Weight - Most Recent: 104.326 kg I&O - Last 24 Hours: Intake & Output 09/13/20 09/14/20 09/14/20 22:59 06:59 14:59 Intake Total 780 300 360 Output Total 500 450 600 Balance 280 -150 -240 Imaging Impressions - Last 24 Hours: None Lab Results Last 24 Hours: None Eric Results Last 24 Hours: Microbiology 09/11/20 12:50 Bacterial Identification - Preliminary Blood - Venous - Lab Draw Gram Negative Rods 09/11/20 12:45 Aerobic Blood Culture - Preliminary Blood - Venous Anaerobic Blood Culture - Final Not Reportable 09/11/20 12:50 Aerobic Blood Culture - Preliminary Blood - Venous - Lab Draw Anaerobic Blood Culture - Preliminary Gram Positive Rods Gram Positive Coccobacillus Med Orders - Current: Current Medications Acetaminophen (Tylenol) 650 mg PO DAILY [facility] Last Admin: 09/14/20 09:05 Dose: 650 mg Documented by: Artificial Tears (Liquitears 1.4% Ophth Soln) 1 ml EYEBOTH QID PRN PRN Reason: Dry Eyes Last Admin: 09/13/20 16:37 Dose: 1 drop Documented by: Atorvastatin Calcium (Lipitor) 40 mg PO BEDTIME [facility] Last Admin: 09/13/20 19:42 Dose: 40 mg Documented by: Dexamethasone (Dexamethasone) 6 mg IVPUSH DAILY [facility] Last Admin: 09/14/20 09:05 Dose: 6 mg Documented by: Doxycycline Monohydrate (Doxycycline Monohydrate) 100 mg PO BID [facility] Ceftriaxone Sodium 1 gm/ (Sodium Chloride) 100 mls @ 200 mls/hr IV Q12H [facility] Magnesium Oxide (Magnesium Oxide) 400 mg PO BID [facility] Methyl Salicylate (Icy Hot Cream) 1 gm TOP QID PRN PRN Reason: Pain (mild 1-3) Last Admin: 09/13/20 19:33 Dose: 1 applic Documented by: Morphine Sulfate (Morphine) 2 mg IVPUSH Q1H PRN PRN Reason: Shortness of Breath Ondansetron HCl (Zofran) 4 mg IVPUSH Q6H PRN PRN Reason: Nausea/Vomiting Sodium Chloride (Saline Flush) 10 ml FLUSH ASDIRECTED PRN PRN Reason: Keep Vein Open Last Admin: 09/13/20 19:42 Dose: 10 ml Documented by: Discontinued Medications Bisacodyl (Dulcolax) 10 mg RECTAL ONETIME ONE Stop: 09/11/20 23:25 Last Admin: 09/12/20 00:49 Dose: Not Given Documented by: Furosemide (Lasix) 20 mg IVPUSH ONETIME ONE Stop: 09/11/20 13:16 Last Admin: 09/11/20 13:45 Dose: 20 mg Documented by: Furosemide (Lasix) 20 mg IVPUSH ONETIME ONE Stop: 09/11/20 18:01 Last Admin: 09/11/20 18:04 Dose: Not Given Documented by: Sodium Chloride (Normal Saline) 250 mls @ 999 mls/hr IV ONETIME ONE Stop: 09/11/20 13:30 Last Admin: 09/11/20 13:44 Dose: 999 mls/hr Documented by: Magnesium Sulfate/Dextrose 1 (gm/ Premix) 100 mls @ 100 mls/hr IV ONETIME ONE Stop: 09/11/20 14:18 Last Admin: 09/11/20 14:08 Dose: 100 mls/hr Documented by: Magnesium Sulfate/Dextrose 1 (gm/ Premix) 100 mls @ 100 mls/hr IV ONETIME ONE Stop: 09/11/20 16:41 Last Admin: 09/11/20 16:50 Dose: Not Given Documented by: Methylprednisolone Sodium Succinate (Solu-Medrol) 125 mg IVPUSH ONETIME ONE Stop: 09/11/20 13:16 Last Admin: 09/11/20 13:45 Dose: 125 mg Documented by: - Exam Quality Assessment: DVT Prophylaxis (Eliquis). No: Supplemental Oxygen, Central Line/PICC, Urine Catheter, Skin Breakdown, Restraints General: Alert, Oriented, Cooperative, No Acute Distress HEENT: Pupils Equal, Pupils Reactive, EOMI, Mucous Membr. 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 No: Lymphadenopathy, Thyromegaly Lungs: Normal Respiratory Effort, Rales (Mild bilateral basilar). No: Rhonchi, Rub, Wheezing Cardiovascular: Regular Rate, No Murmurs, Irregular Rhythm. No: Murmurs, Gallops, Rubs GI/Abdominal Exam: Normal Bowel Sounds, Soft, Non-Tender, No Organomegaly, No Distention, No Abnormal Bruit, No Mass. No: Guarding (Male) Exam: Deferred Back Exam: Normal Inspection, Full Range of Motion. No: CVA Tenderness (L), CVA Tenderness (R), Muscle Spasm Extremities: Normal Inspection, Normal Range of Motion, Non-Tender, No Pedal Edema, Normal Capillary Refill. No: Niels's Sign Peripheral Pulses: 2+: Radial (L), Radial (R), Dorsalis Pedis (L), Dorsalis Pedis (R) Skin: Ecchymosis (Occasional diffuse with no petechiae) Neurological: No New Focal Deficit, Other (No clinical orthostasis) Psy/Mental Status: Alert, Normal Affect, Normal Mood. No: Agitated, Hallucinations, Withdrawal Symptoms Sepsis Event Note - Evaluation Sepsis Screening Result: No Definite Risk - Focused Exam Vital Signs: Vital Signs Temp Pulse Resp BP Pulse Ox 09/14/20 08:00 35.8 C L 88 22 H 143/82 H 98 - Problem List & Annotations (1) Sepsis SNOMED Code(s): 61875758 Code(s): A41.9 - SEPSIS, UNSPECIFIED ORGANISM Status: Acute Priority: High Current Visit: Yes Onset Date: 09/11/20 Qualifiers: Sepsis type: sepsis due to unspecified organism Sepsis acute organ dysfunction status: without acute organ dysfunction Qualified Code(s): A41.9 - Sepsis, unspecified organism Annotation/Comment:: Patient did meet sepsis criteria on admission including hypotension, significantly elevated lactic acid level, etc. with positive blood cultures for gram positive and gram-negative rods with final culture and sensitivity still pending. Despite not starting antibiotics until 09/14 the patient did respond well to IV dexamethasone with concomitant COVID-19 infection. Per the patient's and family's request comfort care was initiated on admission and will be continued at discharge. (2) COVID-19 SNOMED Code(s): 106801945 Code(s): U07.1 - COVID-19 Status: Acute Priority: High Current Visit: Yes Annotation/Comment:: Patient has recent diagnosis of Covid-19. Was tested at end of last week. Did not start to feel poorly until yesterday. No pattern consistent with Covid pneumonia noted on chest film on admission. Patient was started on IV dexamethasone secondary to his oxygen requirement with antibiotics not initiated on admission despite sepsis criteria as above. The patient was not a candidate for Remdesivir based on chronic medical conditions and NO CODE STATUS per guidelines. (3) CHF (congestive heart failure) SNOMED Code(s): 92080279 Code(s): I50.9 - HEART FAILURE, UNSPECIFIED Status: Acute Priority: High Current Visit: Yes Qualifiers: Heart failure type: unspecified Heart failure chronicity: acute on chronic Qualified Code(s): I50.9 - Heart failure, unspecified Annotation/Comment:: Suspected acute ecacerbation secondary to current Covid infection/myocarditis and threatening cardiogenic shock/failure. Comfort Care desired by patient as above. Low BPs would likely be exacerbated by any aggressive diuresis. Cautious 20mg dose given in ER with single additional dose scheduled after admission. The patient did initially require O2 supplementation via nasal cannula, however excellent O2 saturations at this time on room air. Care plan was reviewed by admitting provider with , hospitalist at [facility], on admission. Patient and his family are in agreement with the treatment plan. (4) Coronary artery disease SNOMED Code(s): 92253085 Code(s): I25.10 - ATHSCL HEART DISEASE OF [place] CORONARY ARTERY W/O ANG PCTRS Status: Chronic Current Visit: Yes Qualifiers: Coronary Disease-Associated Artery/Lesion type: [place] artery [place] vs. transplanted heart: [place] heart Associated angina: without angina Qualified Code(s): I25.10 - Atherosclerotic heart disease of [place] coronary artery without angina pectoris Annotation/Comment:: No chest pain or anginal type symptoms despite CHF likely decompensated from his current sepsis and COVID-19 infection. Note comfort care. (5) Afib SNOMED Code(s): 90011219 Code(s): I48.91 - UNSPECIFIED ATRIAL FIBRILLATION Status: Chronic Priority: Medium Current Visit: Yes Qualifiers: Atrial fibrillation type: persistent (not longstanding) Qualified Code(s): I48.19 - Other persistent atrial fibrillation; I48.1 - Persistent atrial fibrillation Annotation/Comment:: Currently on Eliquis as above. No chest pain or anginal type symptoms. Note current pacemaker, which is also beneficial for his CHF. (6) Hypoalbuminemia SNOMED Code(s): 480839184 Code(s): E88.09 - OTH DISORDERS OF PLASMA-PROTEIN METABOLISM, NEC Status: Chronic Priority: Medium Current Visit: Yes Annotation/Comment:: Observe for now. Consider high-protein Glucerna supplements as snacks depending on his clinical course (7) Leukopenia SNOMED Code(s): 27140505, 433562727 Code(s): D72.819 - DECREASED WHITE BLOOD CELL COUNT, UNSPECIFIED Status: Acute Priority: High Current Visit: Yes Onset Date: 09/11/20 Qualifiers: Leukopenia type: neutropenia Neutropenia type: due to infection Qualified Code(s): D70.3 - Neutropenia due to infection Annotation/Comment:: Likely secondary to COVID-19 infection. Labs prior to discharge. (8) D-dimer, elevated SNOMED Code(s): 681746496 Code(s): R79.89 - OTHER SPECIFIED ABNORMAL FINDINGS OF BLOOD CHEMISTRY Status: Acute Priority: High Current Visit: Yes Onset Date: 09/14/20 Annotation/Comment:: No evidence of PE or DVT. Comfort care per the patient and his family's request with no further work-up at this time. Note that patient was previously on Eliquis secondary to his chronic atrial fibrillation. (9) Thrombocytopenia SNOMED Code(s): 761572109 Code(s): D69.6 - THROMBOCYTOPENIA, UNSPECIFIED Status: Acute Priority: High Current Visit: Yes Onset Date: 09/14/20 Annotation/Comment:: Note D- dimer elevation and previous/current Eliquis therapy as above. Continue to observe closely on an outpatient basis. (10) Chronic kidney disease SNOMED Code(s): 502450574 Code(s): N18.9 - CHRONIC KIDNEY DISEASE, UNSPECIFIED Status: Acute Priority: Medium Current Visit: Yes Qualifiers: Chronic kidney disease stage: stage 3 (moderate) Annotation/Comment:: Creatinine level normal during initial phases of hospitalization. (11) Comfort measures only status SNOMED Code(s): 66144756874360 Code(s): Z51.5 - ENCOUNTER FOR PALLIATIVE CARE Status: Chronic Priority: High Current Visit: Yes Annotation/Comment:: Patient desires comfort measures. Family notified and in agreement as per communication with admitting provider. They are all aware of patient's extremely poor prognosis both on admission and on a long-term basis. The patient responded extremely well to therapy during this hospitalization, however note persistent long-term poor prognosis. (12) Hypomagnesemia SNOMED Code(s): 191658714 Code(s): E83.42 - HYPOMAGNESEMIA Status: Acute Priority: Medium Current Visit: Yes Annotation/Comment:: IV replacement ordered on admission with additional oral supplementation initiated on 09/04. (13) HTN (hypertension) SNOMED Code(s): 48234635 Code(s): I10 - ESSENTIAL (PRIMARY) HYPERTENSION Status: Acute Priority: High Current Visit: Yes Qualifiers: Hypertension type: essential hypertension Qualified Code(s): I10 - Essential (primary) hypertension Annotation/Comment:: Severe hypotension on admission and during the early phases of this hospitalization. Consider JACK inhibitor therapy at discharge in light of current COVID-19 infection. (14) Hyperlipidemia SNOMED Code(s): 20365201 Code(s): E78.5 - HYPERLIPIDEMIA, UNSPECIFIED Status: Chronic Priority: Medium Current Visit: Yes Qualifiers: Hyperlipidemia type: unspecified Qualified Code(s): E78.5 - Hyperlipidemia, unspecified Annotation/Comment:: Currently under therapy. (15) Osteoarthritis SNOMED Code(s): 447832718 Code(s): M19.90 - UNSPECIFIED OSTEOARTHRITIS, UNSPECIFIED SITE Status: Chronic Priority: Medium Current Visit: Yes Qualifiers: Osteoarthritis location: unspecified site Annotation/Comment:: Otherwise stable by history. - Problem List Review Problem List Initiated/Reviewed/Updated: Yes - My Orders Last 24 Hours: My Active Orders 09/14/20 09:45 cefTRIAXone [Rocephin] 1 gm Sodium Chloride 0.9% [Normal Saline] 100 ml IV Q12H 09/14/20 09:49 RT Incentive Spirometry [RC] ASDIRECTED 09/14/20 09:52 CHF Questionnaire [COMM] Routine 09/14/20 10:00 Doxycycline Monohydrate 100 mg PO BID Magnesium Oxide 400 mg PO BID 09/14/20 Lunch Fluid Restriction [DIET] 09/15/20 05:11 EKG Documentation Completion [RC] ASDIRECTED Chest 1V Frontal [CR] Routine CBC WITH AUTO DIFF [HEME] Routine CK W CKMB [CHEM] Routine COMPREHENSIVE METABOLIC PN,CMP [CHEM] Routine D-DIMER QUANTITATIVE [COAG] Routine MAGNESIUM [CHEM] Routine PRO B-TYPE NATRIUR PEPT,BNPPRO [CHEM] Routine TROPONIN I [CHEM] Routine EKG 12 Lead [EK] Routine - Assessment Assessment:: as above - Plan Plan:: As above. Extensive precautions were given to the patient, who is in agreement with the treatment plan. Likely discharge to home tomorrow to his assisted living facility.
[2020-09-14] MEDS: Famotidine 20 MG/2 ML SDV IVPUSH SCH (10:40)
[2020-09-14] MEDS: Magnesium Oxide 400 MG Tab PO SCH ×2 (10:40→17:33)
[2020-09-14] MEDS: Doxycycline Monohydrate 100 MG Cap PO SCH ×2 (10:40→17:33)
[2020-09-14] MEDS: cefTRIAXone 1 GM in Sodium Chloride 0.9% 100 ML IV SCH ×2 (10:40→21:25)
[2020-09-14] MEDS: Polyvinyl Alcohol 1.4% Ophth Soln 15 ML Bottle EYEBOTH PRN (17:40)
[2020-09-14] MEDS: atorvaSTATin 40 MG Tab PO SCH (21:25)
[2020-09-14] MEDS: Sodium Chloride 0.9% 10 ML Syringe FLUSH PRN (21:25)
[2020-09-15 08:41] LABS: CHLORIDE,CL 103 mmol/L (98-107); SODIUM,NA 137 mmol/L (136-145)
[2020-09-15] MEDS: Dexamethasone 10 MG/ML SDV IVPUSH SCH (08:44)
[2020-09-15] MEDS: Sodium Chloride 0.9% 10 ML Syringe FLUSH PRN ×2 (08:44→10:27)
[2020-09-15] MEDS: Magnesium Oxide 400 MG Tab PO SCH (08:45)
[2020-09-15] MEDS: Acetaminophen 325 MG Tab PO SCH (08:45)
[2020-09-15] MEDS: Doxycycline Monohydrate 100 MG Cap PO SCH (08:45)
[2020-09-15] MEDS: cefTRIAXone 1 GM in Sodium Chloride 0.9% 100 ML IV SCH (08:48)
--- NOTE | 2020-09-15 09:47 | PCM.DCSUM1 ---
Discharge Summary - Hospital Course HPI Initial Comments: See emergency room note/admission H&P Brief History: See emergency room note/admission H&P Diagnosis: Stroke: No Modified [place] Scale: No Symptoms at All Modified [place] Scale Score: 0 - Discharge Data Discharge Date: 09/15/20 Discharge Disposition: Home, Self-Care 01 Condition: Fair - Referral to Home Health Primary Care Physician: Eden Huff NP - Discharge Diagnosis/Problem(s) (1) Sepsis SNOMED Code(s): 81265074 ICD Code: A41.9 - SEPSIS, UNSPECIFIED ORGANISM Status: Acute Priority: High Current Visit: Yes Onset Date: 09/11/20 Problem Details: Patient did meet sepsis criteria on admission, including hypotension, significantly elevated lactic acid level, etc. with positive blood cultures for gram positive and gram- negative rods with final culture and sensitivity still pending at time of discharge. Despite not starting antibiotics until 09/14 the patient did respond well to IV dexamethasone with concomitant COVID-19 infection. Per the patient's and family's request comfort care was initiated on admission and will be continued at discharge. Quarantine, hygiene, etc. precautions were extensively discussed with the patient. Various therapeutic options were also discussed with the patient wanting to go back to his assisted living facility rather than continuing this hospitalization despite his persistent and refractory CHF. Continue to observe closely by his regular providers as per discharge instructions. Qualifiers: Sepsis type: sepsis due to unspecified organism Sepsis acute organ dysfunction status: without acute organ dysfunction Qualified Code(s): A41.9 - Sepsis, unspecified organism (2) COVID-19 SNOMED Code(s): 165487145 ICD Code: U07.1 - COVID-19 Status: Acute Priority: High Current Visit: Yes Problem Details: Patient has recent diagnosis of Covid-19. He was tested at end of last week, however he did not start to feel poorly until the day prior to admission. No pattern consistent with pneumonia, including COVID-19, noted on chest film on admission with findings more consistent with CHF as below. Patient was started on IV dexamethasone secondary to his oxygen requirement with antibiotics not initiated on admission despite sepsis criteria as above. The patient was not a candidate for Remdesivir based on chronic medical conditions and NO CODE STATUS per guidelines. (3) CHF (congestive heart failure) SNOMED Code(s): 29889538 ICD Code: I50.9 - HEART FAILURE, UNSPECIFIED Status: Acute Priority: High Current Visit: Yes Problem Details: Suspected acute ecacerbation secondary to current Covid infection/myocarditis and threatening cardiogenic shock/failure. Note that the patient had also been hospitalized at [facility] during the last month for his CHF. Comfort Care desired by patient as above. Low BPs would likely be exacerbated by any aggressive diuresis. Cautious 20mg dose given in ER with single additional dose scheduled after admission. The patient did initially require O2 supplementation via nasal cannula, however excellent O2 saturations at this time on room air. Care plan was reviewed by admitting provider with , hospitalist at [facility] in [place], on admission. Patient and his family are in agreement with the treatment plan. Note that additional IV Lasix was initiated on 09/14 with clinical and chest x-ray improvement of his CHF despite persistent moderate BNP elevation. His prognosis is still very guarded with moderate troponin I elevation possibly secondary to his CHF. No chest pain or anginal type symptoms. The patient is requesting to go home today, however, as above. His previous oral Lasix therapy will be increased at discharge. No echocardiogram, etc. secondary to his comfort care status. Qualifiers: Heart failure type: unspecified Heart failure chronicity: acute on chronic Qualified Code(s): I50.9 - Heart failure, unspecified (4) Coronary artery disease SNOMED Code(s): 72281540 ICD Code: I25.10 - ATHSCL HEART DISEASE OF [place] CORONARY ARTERY W/O ANG PCTRS Status: Chronic Current Visit: Yes Problem Details: No chest pain or anginal type symptoms despite CHF likely decompensated from his current sepsis and COVID-19 infection. Note comfort care. Qualifiers: Coronary Disease-Associated Artery/Lesion type: platinum artery [place] vs. transplanted heart: platinum heart Associated angina: without angina Qualified Code(s): I25.10 - Atherosclerotic heart disease of [place] coronary artery without angina pectoris (5) Afib SNOMED Code(s): 78972016 ICD Code: I48.91 - UNSPECIFIED ATRIAL FIBRILLATION Status: Chronic Priority: Medium Current Visit: Yes Problem Details: Currently on Xarelto as below. This will be continued/resumed with caution secondary to his significant thrombocytopenia with no anticoagulation given during this hospitalization. No chest pain or anginal type symptoms. Note current pacemaker, which is also beneficial for his CHF. Qualifiers: Atrial fibrillation type: persistent (not longstanding) Qualified Code(s): I48.19 - Other persistent atrial fibrillation; I48.1 - Persistent atrial fibrillation (6) Hypoalbuminemia SNOMED Code(s): 169428846 ICD Code: E88.09 - [facility] DISORDERS OF PLASMA-PROTEIN METABOLISM, NEC Status: Chronic Priority: Medium Current Visit: Yes Problem Details: Observe for now. Consider high-protein Glucerna supplements as snacks depending on his clinical course (7) Leukopenia SNOMED Code(s): 13508518, 852208889 ICD Code: D72.819 - DECREASED WHITE BLOOD CELL COUNT, UNSPECIFIED Status: Acute Priority: High Current Visit: Yes Onset Date: 09/11/20 Problem Details: Initial leukopenia on admission likely secondary to COVID-19 infection. WBCs at discharge were mildly elevated likely secondary to his IV dexamethasone therapy with patient afebrile prior to discharge. Dexamethasone at discharge secondary to his leukopenia, Xarelto therapy, and risk of bleeding. Qualifiers: Leukopenia type: neutropenia Neutropenia type: due to infection Qualified Code(s): D70.3 - Neutropenia due to infection (8) D-dimer, elevated SNOMED Code(s): 409785793 ICD Code: R79.89 - OTHER SPECIFIED ABNORMAL FINDINGS OF BLOOD CHEMISTRY Status: Acute Priority: High Current Visit: Yes Onset Date: 09/14/20 Problem Details: No evidence of PE or DVT. Comfort care per the patient and his family's request with no further work-up at this time. Note that patient was previously on Xarelto rather than Eliquis secondary to his chronic atrial fibrillation with current pacemaker therapy. D-dimer improved at discharge. (9) Thrombocytopenia SNOMED Code(s): 107803719 ICD Code: D69.6 - THROMBOCYTOPENIA, UNSPECIFIED Status: Acute Priority: High Current Visit: Yes Onset Date: 09/14/20 Problem Details: Note D-dimer elevation and previous Xarelto therapy as above. Continue to observe closely on an outpatient basis. (10) Chronic kidney disease SNOMED Code(s): 507096866 ICD Code: N18.9 - CHRONIC KIDNEY DISEASE, UNSPECIFIED Status: Acute Priority: Medium Current Visit: Yes Problem Details: Creatinine level normalized during initial phases of hospitalization. Continue close observation by his regular providers. Qualifiers: Chronic kidney disease stage: stage 3 (moderate) (11) Comfort measures only status SNOMED Code(s): 53215018129452 ICD Code: Z51.5 - ENCOUNTER FOR PALLIATIVE CARE Status: Chronic Priority: High Current Visit: Yes Problem Details: Patient desires comfort measures. Family notified and in agreement as per communication with admitting provider. They are all aware of patient's extremely poor prognosis both on admission and on a long-term basis. The patient responded extremely well to therapy during this hospitalization, however note persistent long-term poor prognosis. (12) Hypomagnesemia SNOMED Code(s): 052873131 ICD Code: E83.42 - HYPOMAGNESEMIA Status: Acute Priority: Medium Current Visit: Yes Problem Details: IV replacement ordered on admission with additional oral supplementation initiated on 09/14. Magnesium level normal at discharge with continuation of oral supplementation secondary to his Lasix therapy. (13) HTN (hypertension) SNOMED Code(s): 96174225 ICD Code: I10 - ESSENTIAL (PRIMARY) HYPERTENSION Status: Acute Priority: High Current Visit: Yes Problem Details: Severe hypotension on admission and during the early phases of this hospitalization. Blood pressure is much improved discharge. Continue to observe closely by his regular providers with consideration of additional JACK inhibitor therapy at follow-up depending on his clinical course, CHF, and in light of current COVID-19 infection. Qualifiers: Hypertension type: essential hypertension Qualified Code(s): I10 - Essential (primary) hypertension (14) Hyperlipidemia SNOMED Code(s): 76909985 ICD Code: E78.5 - HYPERLIPIDEMIA, UNSPECIFIED Status: Chronic Priority: Medium Current Visit: Yes Problem Details: Currently under therapy. Qualifiers: Hyperlipidemia type: unspecified Qualified Code(s): E78.5 - Hyperlipidemia, unspecified (15) Osteoarthritis SNOMED Code(s): 660094786 ICD Code: M19.90 - UNSPECIFIED OSTEOARTHRITIS, UNSPECIFIED SITE Status: Chronic Priority: Medium Current Visit: Yes Problem Details: He did r eceive physical therapy and Occupational Therapy during this hospitalization. Otherwise stable by history. Qualifiers: Osteoarthritis location: unspecified site (16) Mixed anxiety depressive disorder SNOMED Code(s): 033103296 ICD Code: F41.8 - OTHER SPECIFIED ANXIETY DISORDERS Status: Acute Priority: High Current Visit: Yes Onset Date: 09/15/20 Problem Details: The patient was very tearful and emotional at time of discharge secondary to his multiple health issues as above. Emotional support was provided. He did not wish to have any medical therapy for his emotions at this time. Continue close follow-up by his regular providers, especially in light of the required quarantine secondary to his COVID-19. TSH normal on admission. (17) PVCs (premature ventricular contractions) SNOMED Code(s): 31767265 ICD Code: I49.3 - VENTRICULAR PREMATURE DEPOLARIZATION Status: Acute Priority: Medium Current Visit: Yes Onset Date: 09/15/20 Problem Details: Observe for now. Note current pacemaker. - Patient Summary/Data Operative Procedure(s) Performed: None Complications: None Consults: Consultations 09/12/20 08:45 OT Evaluation and Treatment [CONS] Routine PT Evaluation and Treatment [CONS] Routine 09/14/20 10:02 Consult to Case Management/Document Design Specialist [CONS] Routine Labs Pending at D/C: 1. Final blood culture sensitivity results 2. Final report of chest x-ray on 09/15/2020 Recommended Follow-up Testing/Procedures: As per discharge instructions Planned Operative Procedure(s) after DC: None Hospital Course: Patient was admitted to inpatient and acute care with treatment for his sepsis, COVID-19, pneumonia, CHF, etc. as above. Initial comfort care measures per the patient's and family's request on admission as above with subsequent more aggressive treatment prior to discharge. Long-term prognosis is extremely poor as above. - Patient Instructions Diet: Fluid Restriction Diet, Other: Heart healthy, diverticulosis Fluid Restriction: 2000 mL Activity: As Tolerated Driving: Do Not Drive Showering/Bathing: May Shower Notify Provider of: Fever, Increased Pain, Nausea and/or Vomiting Other/Special Instructions: 1. Followup with your regular provider in 5-7 days as directed for reevaluation and recommended repeat CBC, comprehensive metabolic panel, CK, CK-MB, troponin I, D-dimer, BNP, magnesium level, EKG, and chest x- ray. Bring these discharge instructions with you to that visit. 2. Hygiene precautions as discussed. 3. Maintain STRICT quarantine until otherwise directed by your regular provider with return to previous social distancing, use of masks, etc., thereafter as per current recommended CDC guidelines. 4. Immediately after this visit verify that your cellular telephone's voicemail has been activated and is empty. Also verify that your home telephone's answering machine is operating properly and has space to receive messages. Note that it is sometimes necessary for us to be able to contact you at a later date to discuss your medical care. 5. Please remember that we are ALWAYS here for you and want to answer any questions you may have. Feel free to call the hospital any time and we call you back ROBERT. 6. Your regular provider will reassess your current Xarelto therapy at follow-up secondary to your significant decreased platelet count during this hospitalization. SYMPTOMS TO LOOK OUT FOR: . You have been hospitalized for your lung and heart disease and should look out for the following symptoms after discharge: . 1. Make absolutely certain that you completely understand the reasons you are taking any of your new and/or old medications and/or supplements as discussed with you by the nurse at time of discharge. This includes possible side effects versus interactions between your medications and/or supplements. Don't be afraid to take extra time to ask any questions or express any concerns, because that is what we are here for. It is very important to us that you understand your care. 2. Notify this facility, telephone number [phone], and/or your regular provider [facility], if you experience any of the following symptoms: a. Any persistent fever equal to or greater than 100.5 degrees that does not respond to recommended doses of Tylenol, ibuprofen, Aleve, or other previously prescribed fever medications. b. Any worsening cough, dyspnea, or difficulty breathing, which is different or increased from your symptoms at time of discharge. c. Any increasing fatigue, weakness, or change in your physical condition since hospital discharge. d. Any worsening of your baseline oxygen saturation at time of discharge, if you take these at home. e. Any increased frequency of your inhaler or nebulizer treatments as directed time of discharge, if you are on these medications. - Discharge Plan *PRESCRIPTION DRUG MONITORING PROGRAM REVIEWED*: Not Applicable *COPY OF PRESCRIPTION DRUG MONITORING REPORT IN PATIENT ELI: Not Applicable Prescriptions/Med Rec: Amoxicillin/Potassium Clav [Augmentin 875-125 Tablet] 1 each PO BIDMEALS #20 tablet Doxycycline Monohydrate 100 mg PO BID #20 cap Furosemide [Lasix] 20 mg PO DAILY@1200 #20 tab Magnesium Oxide 400 mg PO BID #20 tablet Famotidine [Pepcid] 20 mg PO QPM #30 tab Home Medications: Home Meds Aspirin [Halfprin] 81 mg PO DAILY 09/26/14 [History] Furosemide [Lasix] 40 mg PO QAM 09/26/14 [History] Nitroglycerin [Nitrostat] 1 tab SL ASDIRECTED PRN 09/26/14 [History] Ubidecarenone [Coenzyme Q10] 100 mg PO BID 09/26/14 [History] Gabapentin [Neurontin] 100 mg PO BEDTIME 07/18/20 [History] Levothyroxine Sodium [Synthroid] 75 mcg PO DAILY 07/18/20 [History] Omeprazole Magnesium [Prilosec Otc] 20 mg PO QAM 07/18/20 [History] Rivaroxaban [Xarelto] 20 mg PO QAM 07/18/20 [History] Flaxseed Oil [Flaxseed] 1 cap PO DAILY 09/11/20 [History] Multivitamin [Daily Multiple Vitamin] 1 tab PO DAILY 09/11/20 [History] atorvaSTATin Calcium [Lipitor] 1 tab PO BEDTIME 09/11/20 [History] Acetaminophen [Acetaminophen Extra Strength] 500 mg PO BID 09/15/20 [History] Acetaminophen [Acetaminophen Extra Strength] 500 mg PO Q4H PRN 09/15/20 [History] Amoxicillin/Potassium Clav [Augmentin 875-125 Tablet] 1 each PO BIDMEALS #20 tablet 09/15/20 [Rx] Calcium Carbonate/Vitamin D3 [Calcium 600-Vit D3 400 Tablet] 2 tab PO QAM 09/15/20 [History] Doxycycline Monohydrate 100 mg PO BID #20 cap 09/15/20 [Rx] Famotidine [Pepcid] 20 mg PO QPM #30 tab 09/15/20 [Rx] Furosemide [Lasix] 20 mg PO DAILY@1200 #20 tab 09/15/20 [Rx] Magnesium Oxide 400 mg PO BID #20 tablet 09/15/20 [Rx] Metoprolol Succinate 25 mg PO DAILY 09/15/20 [History] [place]-3S/DHA/Epa/Fish Oil [[place]-3 Fish Oil 1,200 mg Sfgl] 1,200 mg PO DAILY 09/15/20 [History] lisinopriL [Lisinopril] 5 mg PO DAILY 09/15/20 [History] Oxygen Therapy Mode: Room Air Patient Handouts: COVID-19 Frequently Asked Questions, Heart Failure, Self Care, [id number], Community-Acquired Pneumonia, Adult, [id number] Forms: ED Department Discharge Referrals: Eden Huff BUILDING MAINTENANCE ENGINEER [Primary Care Provider] - - Discharge Summary/Plan Comment DC Time >30 min.: Yes (Coordination of care ) Discharge Summary/Plan Comment: As above. Extensive precautions were given to the patient, who is in agreement with the treatment plan. See Patient Instructions for further treatment and plan. Note the patient's previous medical therapy was once again verified by the nurses prior to his discharge. - General Info Date of Service: 09/15/20 Admission Dx/Problem (Free Text: 1. Sepsis 2. COVID-19 infection 3. CHF Functional Status: Reports: Pain Controlled, Tolerating Diet, Ambulating, Urinating (Incontinent), Incentive Spirometry. Denies: New Symptoms Numeric/FACES Score: 0 - Review of Systems General: Reports: Weakness (Improving slowly). 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 Denies: Dysphasia, Ear Pain, Eye Pain, Headaches, Sinus Congestion, Sore Throat, Rhinitis, Visual Changes Pulmonary: Reports: Shortness of Breath (Improving), Cough. Denies: Pleuritic Chest Pain, Sputum, Hemoptysis, Wheezing Cardiovascular: Reports: Dyspnea on Exertion. Denies: Chest Pain, Palpitations, Orthopnea, PND, Edema, Lightheadedness Gastrointestinal: Reports: No Symptoms, Other (Normal bowel movement yesterday). Denies: Abdominal Pain, Constipation, Decreased Appetite, Diarrhea, Difficulty Swallowing, Flatus, Hematochezia, Melena, Nausea, Vomiting Genitourinary: Reports: Incontinence. Denies: Dysuria, Frequency, Burning, Pain, Urgency, Hematuria, Retention, Flank Pain Musculoskeletal: Reports: No Symptoms. Denies: Neck Pain, Shoulder Pain, Arm Pain, Back Pain, Leg Pain Skin: Reports: Bruising (Mild occasionalstable). Denies: Diaphoresis Neurological: Reports: Weakness (As above). Denies: Confusion, Dizziness, Headache, Numbness, Paresthesia, Tingling Psychiatric: Reports: Depression, Anxiety. Denies: Confusion, Agitation, Cravings, Hallucinations - Patient Data Vitals - Most Recent: Last Vital Signs Temp 36.1 C 09/15/20 09:01 Pulse 74 09/14/20 21:41 Resp 18 09/14/20 21:41 BP 139/91 H 09/15/20 09:01 Pulse Ox 98 09/15/20 09:01 Vital Signs - 24 hr 09/14/20 09/14/20 09/15/20 17:34 21:41 09:01 Temperature [ 36.3 C 36.8 C 36.1 C Temporal] Pulse, 84 74 Peripheral [ Pulse Oximetry] Respiratory 20 18 Rate Blood Pressure 139/91 H [Left Upper Arm ] Blood Pressure 144/86 H 116/78 [Right Upper Arm] O2 Sat by Pulse 97 98 Oximetry Weight - Most Recent: 104.326 kg I&O - Last 24 hours: Intake & Output 09/14/20 09/15/20 09/15/20 22:59 06:59 14:59 Intake Total 980 150 620 Output Total 250 500 Balance 730 -350 620 Imaging Impressions - Last 24 hrs: Chest x-ray, portable, on 09/11/2020 showed evidence of mild CHF, cardiomegaly and pacemaker with a somewhat poor inspiration and no definite pulmonary infiltrates noted Chest x-ray, portable, on 09/15/2020 showed improvement of patient's mild CHF as above with extremely poor expiratory film but evidence of cardiomegaly, pacemaker, and COPD with pulmonary infiltrates difficult to assess secondary to his CHF. No pneumothorax. Mild aortic valve calcification noted. Probable concomitant pulmonary hypertension. Lab Results - Last 24 hrs: Laboratory Results - last 24 hr 09/15/20 09/15/20 09/15/20 Range/Units 08:00 08:00 08:00 WBC 11.4 H (4.0-10.2) K/uL RBC 4.46 (4.33-5.41) M/uL Hgb 13.7 D (13.1-16.8) g/dL Hct 41.4 (39.0-49.0) % MCV 92.8 (84.0-98.0) fL MCH 30.7 (28.2-33.3) pg MCHC 33.1 (31.7-36.0) g/dL RDW 14.1 (11.2-14.1) % Plt Count 78 L (150-350) K/uL Neut % (Auto) 88.6 H (45.0-80.0) % Lymph % (Auto) 5.4 L (10.0-50.0) % [place] % (Auto) 5.9 (2.0-14.0) % Eos % (Auto) 0.0 (0.0-5.0) % Baso % (Auto) 0.1 (0.0-2.0) % Neut # (Auto) 10.06 H (1.40-7.00) K/uL Lymph # (Auto) 0.61 (0.50-3.50) K/uL [place] # (Auto) 0.67 (0.00-1.00) K/uL Eos # (Auto) 0.00 (0.00-0.50) K/uL Baso # (Auto) 0.01 (0.00-0.20) K/uL D-Dimer, Quantitative 776 H (0-400) ng/mL Sodium 137 (136-145) mmol/L Potassium 4.7 (3.5-5.1) mmol/L Chloride 103 (98-107) mmol/L Carbon Dioxide 27.3 (21.0-32.0) mmol/L BUN 37 H (7-18) mg/dL Creatinine 0.87 (0.51-1.17) mg/dL Est Cr Clr Drug Dosing 61.07 mL/min Estimated GFR (MDRD) > 60 mL/min Glucose 135 H (74-106) mg/dL Calcium 8.9 (8.5-10.1) mg/dL Magnesium 2.0 (1.8-2.4) mg/dL Total Bilirubin 0.5 (0.2-1.0) mg/dL Direct Bilirubin 0.2 (0.0-0.2) mg/dL Indirect Bilirubin 0.3 AST 21 (15-37) U/L ALT 44 (12-78) U/L Alkaline Phosphatase 52 (46-116) IU/L Creatine Kinase 64 (26-308) U/L Creatine Kinase Index 3.1 H (0.0-2.5) % CK-MB (CK-2) 2.00 (0.00-3.60) ng/mL Troponin I 0.123 H* (0.000-0.056) ng/mL NT-Pro-B Natriuret Pep 72423 H (0-125) pg/mL Total Protein 6.2 L (6.4-8.2) g/dL Albumin 2.5 L (3.4-5.0) g/dL Laboratory Tests 09/11/20 09/11/20 09/11/20 Range/Units 12:44 12:44 12:44 WBC 2.8 L (4.0-10.2) K/uL RBC 4.96 (4.33-5.41) M/uL Hgb 15.2 (13.1-16.8) g/dL Hct 46.8 (39.0-49.0) % MCV 94.4 (84.0-98.0) fL MCH 30.6 (28.2-33.3) pg MCHC 32.5 (31.7-36.0) g/dL RDW 14.5 H (11.2-14.1) % Plt Count 76 L (150-350) K/uL Neut % (Auto) 97.1 H (45.0-80.0) % Lymph % (Auto) 2.5 L (10.0-50.0) % [place] % (Auto) 0.4 L (2.0-14.0) % Eos % (Auto) 0.0 (0.0-5.0) % Baso % (Auto) 0.0 (0.0-2.0) % Neut # (Auto) 2.70 (1.40-7.00) K/uL Lymph # (Auto) 0.07 L (0.50-3.50) K/uL [place] # (Auto) 0.01 (0.00-1.00) K/uL Eos # (Auto) 0.00 (0.00-0.50) K/uL Baso # (Auto) 0.00 (0.00-0.20) K/uL PT 14.1 H (9.5-12.0) SEC INR 1.4 D-Dimer, Quantitative (0-400) ng/mL POC ABG pH (7.35-7.45) pH POC ABG pCO2 (35-48) mmHg POC ABG pO2 (83-108) mmHg POC ABG HCO3 (22-26) mmol/L POC ABG Total CO2 (23-27) mmol/L POC ABG O2 Sat (95-98) % POC ABG Base Excess (-2-3) mmol/L O2 Delivery Device Oxygen Flow Rate Sodium (136-145) mmol/L Potassium (3.5-5.1) mmol/L Chloride (98-107) mmol/L Carbon Dioxide (21.0-32.0) mmol/L BUN (7-18) mg/dL Creatinine (0.51-1.17) mg/dL Est Cr Clr Drug Dosing Estimated GFR (MDRD) mL/min Glucose (74-106) mg/dL Lactic Acid (0.4-2.0) mmol/L Calcium (8.5-10.1) mg/dL Magnesium (1.8-2.4) mg/dL Total Bilirubin (0.2-1.0) mg/dL Direct Bilirubin (0.0-0.2) mg/dL Indirect Bilirubin AST (15-37) U/L ALT (12-78) U/L Alkaline Phosphatase (46-116) IU/L Creatine Kinase (26-308) U/L Creatine Kinase Index (0.0-2.5) % CK-MB (CK-2) (0.00-3.60) ng/mL Troponin I (0.000-0.056) ng/mL NT-Pro-B Natriuret Pep (0-125) pg/mL Total Protein (6.4-8.2) g/dL Albumin (3.4-5.0) g/dL TSH, Ultra Sensitive (0.358-3.740) mIU/mL Specimen Type Urinblad Urine Color Yellow Urine Appearance Clear Urine pH 5.0 (5.0-9.0) Ur Specific [place] 1.015 (1.005-1.030) Urine Protein 100 H (NEGATIVE) mg/dL Urine Glucose (UA) Negative (NEGATIVE) mg/dL Urine Ketones Negative (NEGATIVE) mg/dL Urine Occult Blood Small H (NEGATIVE) Urine Nitrite Negative (NEGATIVE) Urine Bilirubin Negative (NEGATIVE) Urine Urobilinogen 0.2 (0.2-1.0) E.U./dL Ur Leukocyte Esterase Negative (NEGATIVE) Urine RBC 0-5 /HPF Urine WBC Not seen /HPF Ur Epithelial Cells Rare /LPF Urine Bacteria Rare (NONE TO FEW) /HPF 09/11/20 09/11/20 09/11/20 Range/Units 12:44 12:44 12:44 WBC (4.0-10.2) K/uL RBC (4.33-5.41) M/uL Hgb (13.1-16.8) g/dL Hct (39.0-49.0) % MCV (84.0-98.0) fL MCH (28.2-33.3) pg MCHC (31.7-36.0) g/dL RDW (11.2-14.1) % Plt Count (150-350) K/uL Neut % (Auto) (45.0-80.0) % Lymph % (Auto) (10.0-50.0) % [place] % (Auto) (2.0-14.0) % Eos % (Auto) (0.0-5.0) % Baso % (Auto) (0.0-2.0) % Neut # (Auto) (1.40-7.00) K/uL Lymph # (Auto) (0.50-3.50) K/uL [place] # (Auto) (0.00-1.00) K/uL Eos # (Auto) (0.00-0.50) K/uL Baso # (Auto) (0.00-0.20) K/uL PT (9.5-12.0) SEC INR D-Dimer, Quantitative 2660 H (0-400) ng/mL POC ABG pH (7.35-7.45) pH POC ABG pCO2 (35-48) mmHg POC ABG pO2 (83-108) mmHg POC ABG HCO3 (22-26) mmol/L POC ABG Total CO2 (23-27) mmol/L POC ABG O2 Sat (95-98) % POC ABG Base Excess (-2-3) mmol/L O2 Delivery Device Oxygen Flow Rate Sodium 139 (136-145) mmol/L Potassium 3.6 (3.5-5.1) mmol/L Chloride 100 (98-107) mmol/L Carbon Dioxide 19.1 L (21.0-32.0) mmol/L BUN 25 H (7-18) mg/dL Creatinine 1.05 (0.51-1.17) mg/dL Est Cr Clr Drug Dosing TNP Estimated GFR (MDRD) > 60 mL/min Glucose 111 H (74-106) mg/dL Lactic Acid 9.0 H (0.4-2.0) mmol/L Calcium 9.4 (8.5-10.1) mg/dL Magnesium 1.5 L (1.8-2.4) mg/dL Total Bilirubin 2.0 H (0.2-1.0) mg/dL Direct Bilirubin (0.0-0.2) mg/dL Indirect Bilirubin AST 28 (15-37) U/L ALT 26 (12-78) U/L Alkaline Phosphatase 118 H (46-116) IU/L Creatine Kinase (26-308) U/L Creatine Kinase Index (0.0-2.5) % CK-MB (CK-2) (0.00-3.60) ng/mL Troponin I (0.000-0.056) ng/mL NT-Pro-B Natriuret Pep 69741 H (0-125) pg/mL Total Protein 6.9 (6.4-8.2) g/dL Albumin 3.3 L (3.4-5.0) g/dL TSH, Ultra Sensitive (0.358-3.740) mIU/mL Specimen Type Urine Color Urine Appearance Urine pH (5.0-9.0) Ur Specific [place] (1.005-1.030) Urine Protein (NEGATIVE) mg/dL Urine Glucose (UA) (NEGATIVE) mg/dL Urine Ketones (NEGATIVE) mg/dL Urine Occult Blood (NEGATIVE) Urine Nitrite (NEGATIVE) Urine Bilirubin (NEGATIVE) Urine Urobilinogen (0.2-1.0) E.U./dL Ur Leukocyte Esterase (NEGATIVE) Urine RBC /HPF Urine WBC /HPF Ur Epithelial Cells /LPF Urine Bacteria (NONE TO FEW) /HPF 09/11/20 09/11/20 09/15/20 Range/Units 12:44 12:50 08:00 WBC 11.4 H (4.0-10.2) K/uL RBC 4.46 (4.33-5.41) M/uL Hgb 13.7 D (13.1-16.8) g/dL Hct 41.4 (39.0-49.0) % MCV 92.8 (84.0-98.0) fL MCH 30.7 (28.2-33.3) pg MCHC 33.1 (31.7-36.0) g/dL RDW 14.1 (11.2-14.1) % Plt Count 78 L (150-350) K/uL Neut % (Auto) 88.6 H (45.0-80.0) % Lymph % (Auto) 5.4 L (10.0-50.0) % [place] % (Auto) 5.9 (2.0-14.0) % Eos % (Auto) 0.0 (0.0-5.0) % Baso % (Auto) 0.1 (0.0-2.0) % Neut # (Auto) 10.06 H (1.40-7.00) K/uL Lymph # (Auto) 0.61 (0.50-3.50) K/uL [place] # (Auto) 0.67 (0.00-1.00) K/uL Eos # (Auto) 0.00 (0.00-0.50) K/uL Baso # (Auto) 0.01 (0.00-0.20) K/uL PT (9.5-12.0) SEC INR D-Dimer, Quantitative (0-400) ng/mL POC ABG pH 7.5 H (7.35-7.45) pH POC ABG pCO2 23 L* (35-48) mmHg POC ABG pO2 72 L* (83-108) mmHg POC ABG HCO3 18.3 L (22-26) mmol/L POC ABG Total CO2 18.5 L (23-27) mmol/L POC ABG O2 Sat 96.1 (95-98) % POC ABG Base Excess -3 L (-2-3) mmol/L O2 Delivery Device Nasal cannula Oxygen Flow Rate 4 Sodium (136-145) mmol/L Potassium (3.5-5.1) mmol/L Chloride (98-107) mmol/L Carbon Dioxide (21.0-32.0) mmol/L BUN (7-18) mg/dL Creatinine (0.51-1.17) mg/dL Est Cr Clr Drug Dosing Estimated GFR (MDRD) mL/min Glucose (74-106) mg/dL Lactic Acid (0.4-2.0) mmol/L Calcium (8.5-10.1) mg/dL Magnesium (1.8-2.4) mg/dL Total Bilirubin (0.2-1.0) mg/dL Direct Bilirubin (0.0-0.2) mg/dL Indirect Bilirubin AST (15-37) U/L ALT (12-78) U/L Alkaline Phosphatase (46-116) IU/L Creatine Kinase (26-308) U/L Creatine Kinase Index (0.0-2.5) % CK-MB (CK-2) (0.00-3.60) ng/mL Troponin I (0.000-0.056) ng/mL NT-Pro-B Natriuret Pep (0-125) pg/mL Total Protein (6.4-8.2) g/dL Albumin (3.4-5.0) g/dL TSH, Ultra Sensitive 0.782 (0.358-3.740) mIU/mL Specimen Type Urine Color Urine Appearance Urine pH (5.0-9.0) Ur Specific [place] (1.005-1.030) Urine Protein (NEGATIVE) mg/dL Urine Glucose (UA) (NEGATIVE) mg/dL Urine Ketones (NEGATIVE) mg/dL Urine Occult Blood (NEGATIVE) Urine Nitrite (NEGATIVE) Urine Bilirubin (NEGATIVE) Urine Urobilinogen (0.2-1.0) E.U./dL Ur Leukocyte Esterase (NEGATIVE) Urine RBC /HPF Urine WBC /HPF Ur Epithelial Cells /LPF Urine Bacteria (NONE TO FEW) /HPF 09/15/20 09/15/20 Range/Units 08:00 08:00 WBC (4.0-10.2) K/uL RBC (4.33-5.41) M/uL Hgb (13.1-16.8) g/dL Hct (39.0-49.0) % MCV (84.0-98.0) fL MCH (28.2-33.3) pg MCHC (31.7-36.0) g/dL RDW (11.2-14.1) % Plt Count (150-350) K/uL Neut % (Auto) (45.0-80.0) % Lymph % (Auto) (10.0-50.0) % [place] % (Auto) (2.0-14.0) % Eos % (Auto) (0.0-5.0) % Baso % (Auto) (0.0-2.0) % Neut # (Auto) (1.40-7.00) K/uL Lymph # (Auto) (0.50-3.50) K/uL [place] # (Auto) (0.00-1.00) K/uL Eos # (Auto) (0.00-0.50) K/uL Baso # (Auto) (0.00-0.20) K/uL PT (9.5-12.0) SEC INR D-Dimer, Quantitative 776 H (0-400) ng/mL POC ABG pH (7.35-7.45) pH POC ABG pCO2 (35-48) mmHg POC ABG pO2 (83-108) mmHg POC ABG HCO3 (22-26) mmol/L POC ABG Total CO2 (23-27) mmol/L POC ABG O2 Sat (95-98) % POC ABG Base Excess (-2-3) mmol/L O2 Delivery Device Oxygen Flow Rate Sodium 137 (136-145) mmol/L Potassium 4.7 (3.5-5.1) mmol/L Chloride 103 (98-107) mmol/L Carbon Dioxide 27.3 (21.0-32.0) mmol/L BUN 37 H (7-18) mg/dL Creatinine 0.87 (0.51-1.17) mg/dL Est Cr Clr Drug Dosing 61.07 Estimated GFR (MDRD) > 60 mL/min Glucose 135 H (74-106) mg/dL Lactic Acid (0.4-2.0) mmol/L Calcium 8.9 (8.5-10.1) mg/dL Magnesium 2.0 (1.8-2.4) mg/dL Total Bilirubin 0.5 (0.2-1.0) mg/dL Direct Bilirubin 0.2 (0.0-0.2) mg/dL Indirect Bilirubin 0.3 AST 21 (15-37) U/L ALT 44 (12-78) U/L Alkaline Phosphatase 52 (46-116) IU/L Creatine Kinase 64 (26-308) U/L Creatine Kinase Index 3.1 H (0.0-2.5) % CK-MB (CK-2) 2.00 (0.00-3.60) ng/mL Troponin I 0.123 H* (0.000-0.056) ng/mL NT-Pro-B Natriuret Pep 29567 H (0-125) pg/mL Total Protein 6.2 L (6.4-8.2) g/dL Albumin 2.5 L (3.4-5.0) g/dL TSH, Ultra Sensitive (0.358-3.740) mIU/mL Specimen Type Urine Color Urine Appearance Urine pH (5.0-9.0) Ur Specific [place] (1.005-1.030) Urine Protein (NEGATIVE) mg/dL Urine Glucose (UA) (NEGATIVE) mg/dL Urine Ketones (NEGATIVE) mg/dL Urine Occult Blood (NEGATIVE) Urine Nitrite (NEGATIVE) Urine Bilirubin (NEGATIVE) Urine Urobilinogen (0.2-1.0) E.U./dL Ur Leukocyte Esterase (NEGATIVE) Urine RBC /HPF Urine WBC /HPF Ur Epithelial Cells /LPF Urine Bacteria (NONE TO FEW) /HPF ANA Results - Last 24 hrs: Microbiology 09/11/20 12:50 Bacterial Identification - Preliminary Blood - Venous - Lab Draw Gram Negative Rods Microbiology 09/11/20 12:50 Blood - Venous - Lab Draw Bacterial Identification - Preliminary Gram Negative Rods 09/11/20 12:45 Blood - Venous Aerobic Blood Culture - Preliminary 09/11/20 12:45 Blood - Venous Anaerobic Blood Culture - Final Not Reportable 09/11/20 12:50 Blood - Venous - Lab Draw Aerobic Blood Culture - Preliminary 09/11/20 12:50 Blood - Venous - Lab Draw Anaerobic Blood Culture - Preliminary Gram Positive Rods Gram Positive Coccobacillus Med Orders - Current: Current Medications Acetaminophen (Tylenol) 650 mg PO DAILY [facility] Last Admin: 09/15/20 08:45 Dose: 650 mg Documented by: Artificial Tears (Liquitears 1.4% Ophth Soln) 1 ml EYEBOTH QID PRN PRN Reason: Dry Eyes Last Admin: 09/14/20 17:40 Dose: 1 drop Documented by: Atorvastatin Calcium (Lipitor) 40 mg PO BEDTIME ANUJ Last Admin: 09/14/20 21:25 Dose: 40 mg Documented by: Dexamethasone (Dexamethasone) 6 mg IVPUSH DAILY [facility] Last Admin: 09/15/20 08:44 Dose: 6 mg Documented by: Doxycycline Monohydrate (Doxycycline Monohydrate) 100 mg PO BID [facility] Last Admin: 09/15/20 08:45 Dose: 100 mg Documented by: Famotidine (Pepcid) 20 mg IVPUSH Q24H [facility] Last Admin: 09/14/20 10:40 Dose: 20 mg Documented by: Ceftriaxone Sodium 1 gm/ (Sodium Chloride) 100 mls @ 200 mls/hr IV Q12H [facility] Last Admin: 09/15/20 08:48 Dose: 200 mls/hr Documented by: Magnesium Oxide (Magnesium Oxide) 400 mg PO BID [facility] Last Admin: 09/15/20 08:45 Dose: 400 mg Documented by: Methyl Salicylate (Icy Hot Cream) 1 gm TOP QID PRN PRN Reason: Pain (mild 1-3) Last Admin: 09/13/20 19:33 Dose: 1 applic Documented by: Morphine Sulfate (Morphine) 2 mg IVPUSH Q1H PRN PRN Reason: Shortness of Breath Ondansetron HCl (Zofran) 4 mg IVPUSH Q6H PRN PRN Reason: Nausea/Vomiting Sodium Chloride (Saline Flush) 10 ml FLUSH ASDIRECTED PRN PRN Reason: Keep Vein Open Last Admin: 09/15/20 08:44 Dose: 10 ml Documented by: Discontinued Medications Bisacodyl (Dulcolax) 10 mg RECTAL ONETIME ONE Stop: 09/11/20 23:25 Last Admin: 09/12/20 00:49 Dose: Not Given Documented by: Furosemide (Lasix) 20 mg IVPUSH ONETIME ONE Stop: 09/11/20 13:16 Last Admin: 09/11/20 13:45 Dose: 20 mg Documented by: Furosemide (Lasix) 20 mg IVPUSH ONETIME ONE Stop: 09/11/20 18:01 Last Admin: 09/11/20 18:04 Dose: Not Given Documented by: Sodium Chloride (Normal Saline) 250 mls @ 999 mls/hr IV ONETIME ONE Stop: 09/11/20 13:30 Last Admin: 09/11/20 13:44 Dose: 999 mls/hr Documented by: Magnesium Sulfate/Dextrose 1 (gm/ Premix) 100 mls @ 100 mls/hr IV ONETIME ONE Stop: 09/11/20 14:18 Last Admin: 09/11/20 14:08 Dose: 100 mls/hr Documented by: Magnesium Sulfate/Dextrose 1 (gm/ Premix) 100 mls @ 100 mls/hr IV ONETIME ONE Stop: 09/11/20 16:41 Last Admin: 09/11/20 16:50 Dose: Not Given Documented by: Methylprednisolone Sodium Succinate (Solu-Medrol) 125 mg IVPUSH ONETIME ONE Stop: 09/11/20 13:16 Last Admin: 09/11/20 13:45 Dose: 125 mg Documented by: - Exam Quality Assessment: Reports: DVT Prophylaxis (Eliquis). Denies: Supplemental Oxygen, Central Line/PICC, Urine Catheter, Skin Breakdown, Restraints General: Reports: Alert, Oriented, Cooperative, No Acute Distress HEENT: Reports: Pupils Equal, Pupils Reactive, EOMI, Mucous Membr. 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 Denies: Scleral Icterus Neck: Reports: Supple, Trachea Midline, No JVD, No Thyromegaly, Carotid Bruit (Mild bilateral carotid bruits versus transmitted heart sounds). Denies: L ymphadenopathy Lungs: Reports: Normal Respiratory Effort, Rales (Slowly improving bilateral basilar). 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 Denies: Gallops, Rubs GI/Abdominal Exam: Normal Bowel Sounds, Soft, Non-Tender, No Organomegaly, No Distention, No Abnormal Bruit, No Mass. No: Guarding (Male) Exam: Deferred Rectal (Males) Exam: Deferred Back Exam: Reports: Normal Inspection, Full Range of Motion. Denies: CVA Tenderness (L), CVA Tenderness (R), Muscle Spasm Extremities: Normal Range of Motion, Non-Tender, No Pedal Edema, Normal Capillary Refill, Other (Moderate venous stasis dermatitis of the anterior tibial regions bilaterally). No: Niels's Sign Skin: Reports: Warm, Dry, Intact, Rash (Dizziness stasis dermatitis as above), Ecchymosis (Stable occasional on the arms and trunk with no petechiae) Neurological: Reports: No New Focal Deficit, Other (No clinical orthostasis) Psy/Mental Status: Reports: Alert, Anxious (Mild), Depressed (Moderate and tearful with good eye contact). Denies: Agitated, Suicidal Ideation, Hallucinations, Withdrawal Symptoms #1 Interpretation EKG Date: 09/15/20 Time: 08:08 Rhythm: A-Fib (With occasional PVC and known pacemaker) [place]: LAD-Left [place] Deviation (Extended left cardiac axis) P-Wave: Variable QRS: LBBB (0.13 seconds representing a complete left bundle branch block with cardiomegaly by EKG) ST-T: Other (T wave inversion in lead aVL) QT: Normal [place]/PQ Interval: Variable Comparison: NA - No Prior EKG (No recent EKG for comparison) EKG Interpretation Comments: 1. No acute ischemic changes 2. Atrial fibrillation with current pacemaker 3. PVCs 4. Complete left bundle branch block 5. Left ventricular hypertrophy by voltage
[2020-09-15] MEDS: Famotidine 20 MG/2 ML SDV IVPUSH SCH (10:26)
[2020-09-15] MEDS: Polyvinyl Alcohol 1.4% Ophth Soln 15 ML Bottle EYEBOTH PRN (10:27)
== END 2020-09-15 15:20 | disposition home or self-care (01) | DRG 871 ==
LOC: LL.ED 12:32 → LL.MS 14:53 → UNDOADMIN 14:53 → LL.MS 15:30 → MERGE 15:30
PROVIDERS: ADMIT Family Medicine; ATTEND Family Medicine
DX: A41.9 Sepsis, unspecified organism (principal); U07.1 COVID-19; I13.0 Hypertensive heart and chronic kidney disease with heart failure and stage 1 through stage 4 chronic kidney disease, or unspecified chronic kidney disease; N18.9 Chronic kidney disease, unspecified; I48.19 Other persistent atrial fibrillation; I50.9 Heart failure, unspecified; Z51.5 Encounter for palliative care; Z66 Do not resuscitate; I25.10 Atherosclerotic heart disease of native coronary artery without angina pectoris; M54.9 Dorsalgia, unspecified; E78.00 Pure hypercholesterolemia, unspecified; E78.5 Hyperlipidemia, unspecified; K21.9 Gastro-esophageal reflux disease without esophagitis; G89.29 Other chronic pain; E03.9 Hypothyroidism, unspecified; M19.90 Unspecified osteoarthritis, unspecified site; Z96.659 Presence of unspecified artificial knee joint; D70.3 Neutropenia due to infection; R79.89 Other specified abnormal findings of blood chemistry; I48.91 Unspecified atrial fibrillation; D69.6 Thrombocytopenia, unspecified; N18.30 Chronic kidney disease, stage 3 unspecified; E83.42 Hypomagnesemia; F41.8 Other specified anxiety disorders; I49.3 Ventricular premature depolarization; Z95.0 Presence of cardiac pacemaker; Z85.46 Personal history of malignant neoplasm of prostate; Z90.49 Acquired absence of other specified parts of digestive tract; Z85.828 Personal history of other malignant neoplasm of skin; Z98.49 Cataract extraction status, unspecified eye; Z88.8 Allergy status to other drugs, medicaments and biological substances
CPT/HCPCS: 36415; 36600; 51702; 71045; 80053; 81001; 82803; 83605; 83735; 83880; 84443; 85025; 85379; 85610; 87040 ×2; 87077; 87186; 96365; 96375; 99285; J1940; J2930; J3475; J7050; 82247; 82248; 82550; 82553; 84484; 93005; 97110-GP; 97163-GP; 97530-GP; 99222; 99232; 99239; A9270-GY; J0696; J1100; J3490

== ENCOUNTER 2020-09-20 22:28 | Inpatient (IN) | payer MEDICARE, BC ==
[2020-09-20] MEDS ORDERED: Famotidine 20 MG/2 ML SDV IVPUSH ONE (22:34)
--- NOTE | 2020-09-20 22:34 | EDM.PDOC ---
ED HPI GENERAL MEDICAL PROBLEM - General Chief Complaint: Respiratory Problem Stated Complaint: oxygen desaturation, fever Time Seen by Provider: 09/20/20 22:30 Source of Information: Reports: Patient, EMS, Old Records ([facility] EMR. No paper hospital chart available.). 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 Despite patient's NO CODE STATUS the family is requesting that the patient be transferred to our facility for evaluation and further treatment. He is a poor historian secondary to severe presbycusis and current confusion and sedation f rom his hypoxia with O2 sat only in the high 70s to low 80s with 100% nonrebreather mask at 15 L/min. Only limited history is available at this time with no direct known cardiac type symptoms, abdominal pain, etc.. The patient is unable to express any direct information, if he is having any significant discomfort, etc., although he does appear to be comfortable at this time. Onset: Today, Gradual, Unknown/Unsure Duration: Getting Worse Severity: Severe Improves with: Reports: None Worsens with: Reports: None Context: Reports: Sick Contact (COVID-19 positive). Denies: Trauma Associated Symptoms: Reports: Confusion (Secondary to hypoxia). 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: Reports: Oxygen - Related Data Allergies Allergy/AdvReac Type Severity Reaction Status Date / Time hydrocodone Allergy Rash Verified 09/20/20 22:31 Home Meds: Home Meds Aspirin [Halfprin] 81 mg PO DAILY 09/26/14 [History] Furosemide [Lasix] 40 mg PO QAM 09/26/14 [History] Nitroglycerin [Nitrostat] 1 tab SL ASDIRECTED PRN 09/26/14 [History] Ubidecarenone [Coenzyme Q10] 100 mg PO BID 09/26/14 [History] Gabapentin [Neurontin] 100 mg PO BEDTIME 07/18/20 [History] Levothyroxine Sodium [Synthroid] 75 mcg PO DAILY 07/18/20 [History] Omeprazole Magnesium [Prilosec Otc] 20 mg PO QAM 07/18/20 [History] Rivaroxaban [Xarelto] 20 mg PO QAM 07/18/20 [History] Flaxseed Oil [Flaxseed] 1 cap PO DAILY 09/11/20 [History] Multivitamin [Daily Multiple Vitamin] 1 tab PO DAILY 09/11/20 [History] atorvaSTATin Calcium [Lipitor] 1 tab PO BEDTIME 09/11/20 [History] Acetaminophen [Acetaminophen Extra Strength] 500 mg PO BID 09/15/20 [History] Acetaminophen [Acetaminophen Extra Strength] 500 mg PO Q4H PRN 09/15/20 [History] Amoxicillin/Potassium Clav [Augmentin 875-125 Tablet] 1 each PO BIDMEALS #20 tablet 09/15/20 [Rx] Calcium Carbonate/Vitamin D3 [Calcium 600-Vit D3 400 Tablet] 2 tab PO QAM 09/15/20 [History] Doxycycline Monohydrate 100 mg PO BID #20 cap 09/15/20 [Rx] Famotidine [Pepcid] 20 mg PO QPM #30 tab 09/15/20 [Rx] Furosemide [Lasix] 20 mg PO DAILY@1200 #20 tab 09/15/20 [Rx] Magnesium Oxide 400 mg PO BID #20 tablet 09/15/20 [Rx] Metoprolol Succinate 25 mg PO DAILY 09/15/20 [History] [place]-3S/DHA/Epa/Fish Oil [[place]-3 Fish Oil 1,200 mg Sfgl] 1,200 mg PO DAILY 09/15/20 [History] lisinopriL [Lisinopril] 5 mg PO DAILY 09/15/20 [History] Past Medical History HEENT History: Reports: Allergic Rhinitis, Cataract, Hard of Hearing, Other (See Below) Other HEENT History: Severe bilateral hearing loss/probably acute cyst with current hearing aid therapy. Cerebral arachnoid cyst. Cardiovascular History: Reports: Afib, Arrhythmia, CAD, Cardiomyopathy, Heart Failure, High Cholesterol, Hypertension, Pacemaker, PVD, Other (See Below). Denies: Aneurysm, Blood Clots/VTE/DVT Other Cardiovascular History: Dyslipidemia. Sick sinus syndrome with pacemaker placement as below. Moderate coronary artery disease with moderate left ventricular hypertrophy and severe left atrial enlargement by echocardiogram with mild mitral valve insufficiency by echocardiogram and mild aortic valve stenosis by clinical exam. 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 Carotid occlusive disease. D-dimer elevation likely secondary to COVID-19 in August 2020. Respiratory History: Reports: COPD Gastrointestinal History: Reports: Diverticulosis, GERD, Other (See Below) Other Gastrointestinal History: Colitis with right-sided hemicolectomy as below. Hepatic cysts. Genitourinary History: Reports: BPH, Chronic Renal Insuffiency, Prostate Disorder, Other (See Below) Other Genitourinary History: Prostate cancer as below. Erectile dysfunction secondary to radioactive prostate seeds. Musculoskeletal History: Reports: Arthritis, Back Pain, Chronic, Gout, Osteoarthritis, Osteoporosis, Other (See Below) Other Musculoskeletal History: History of lumbar spinal stenosis. Right biceps tendon rupture on 11/19/2004. Idiopathic myositis with intermittent CPK elevation. Bilateral carpal tunnel syndrome. Fracture of the right foot on 08/24/2002 with possible Charcot abnormality. Govea's cyst of the right leg on 07/19/2020. Neurological History: Reports: Neuropathy, Peripheral Endocrine/Metabolic History: Reports: Hypomagnesemia, Hypothyroidism, Osteopenia, Osteoporosis, Other (See Below) Other Endocrine/Metabolic History: Hypoalbuminemia. Right adrenal mass. Hematologic History: Reports: Anemia, Blood Transfusion(s), Other (See Below) Other Hematologic History: Thrombocytopenia. Oncologic (Cancer) History: Reports: Basal Cell Carcinoma, Prostate, Other (See Below) Other Oncologic History: Prostate cancerGleason 7 with radioactive seed insertion on 07/21/2003. Dermatologic History: Reports: Other (See Below) Other Dermatologic History: Basal cell carcinoma as below - Past Surgical History Head Surgeries/Procedures: Reports: None HEENT Surgical History: Reports: Cataract Surgery, Eye Surgery, Oral Surgery, Other (See Below) Other HEENT Surgeries/Procedures: Left eye vitrectomy with membrane removal on 12/25/2005. Left cataract surgery on 01/22/2007 with right cataract surgery on 02/05/2007. Removal of basal cell carcinoma from the eyelid. Teeth extractions Cardiovascular Surgical History: Reports: Pacer, Other (See Below) Other Cardiovascular Surgeries/Procedures: Pacemaker placement on 06/02/2002. GI Surgical History: Reports: Colon, Colonoscopy, Hernia, Abdominal, Other (See Below) Other GI Surgeries/Procedures: Colonoscopy on 04/16/2007. Right-sided hemicolectomy in 2013 secondary to colitis with microperforation and possible concomitant diverticulitis. Ventral hernia repair. Male Surgical History: Reports: Other (See Below) Other Male Surgeries/Procedures: Cystoscopy on 10/06/2002. Neurological Surgical History: Reports: Laminectomy, Lumbar Spine Musculoskeletal Surgical History: Reports: Hip Replacement, Joint Replacement, Knee Replacement, Other (See Below) Other Musculoskeletal Surgeries/Procedures:: Left hip TEP. Bilateral TKA on 05/01/2006. Right carpal tunnel and right ulnar nerve release on 07/10/2006 with concomitant transposition of the right third and fourth trigger finger release. Left carpal tunnel and left third finger trigger release on 08/07/2006. - Past Imaging History Past Imaging History: Reports: Angiography (Heart catheterization on 06/02/2002.), Cardiac Echo (01/28/2017 with ejection fraction of 50-55% and findings as above.), Carotid US (03/14/2006), CAT Scan (CT of the right leg on 07/19/2020. CT of the abdomen and pelvis on 09/26/2014 and 06/20/2003. CT of the head on 10/27/2009.), PFT (06/19/2005 and 03/13/2006.), Stress Testing (Cardiolite stress test on 12/13/2004 with subsequent dobutamine Cardiolite stress test on 04/18/2006 with ejection fraction of 60% and findings as above.), Venous Doppler (Venous Doppler study of the right leg on 07/19/2020 and left leg on 03/26/2019 and 02/03/2012.), Other (See Below) (EMGs and nerve conduction studies on 06/16/2006) Social & Family History - Family History Cardiac: Reports: Hypertension, Other (See Below) Other Cardiac Family History: Mother with valve replacement in her 80s. Father with fatal AK at age 57. Several paternal uncles with MIs. Father with hypertension. Endocrine/Metabolic: Reports: Diabetes, type II, IDDM, Other (See Below) Other Endocrine/Metabolic Family History: Mother with IDDM. 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 No: Facial Swelling, Facial Tenderness, Sinus Tenderness Neck: Supple, Non-Tender, Full Range of Motion, Carotid Bruit (Mild bilateral carotid bruits versus transmitted heart sounds). No: Lymphadenopathy (L), Lymphadenopathy (R), Thyromegaly Respiratory/Chest: Chest Non-Tender, Respiratory Distress (Mild), Rales (Mild di ffuse bilaterally), Accessory Muscle Use (Mild). No: Rhonchi, Wheezing, Pleural Rub, Retractions Cardiovascular: No Edema, No Gallop, No JVD, No Rub, Systolic Murmur (Mild 1/6 OANH of the aortic valve), Extra Beats (Occasional extrasystoles with a regular rate). No: Gallop/S3, Gallop/S4, Friction Rub Peripheral Pulses: 2+: Radial (L), Radial (R), Dorsalis Pedis (L), Dorsalis Pedis (R) GI/Abdominal: Normal Bowel Sounds, Soft, Non-Tender, No Organomegaly, No Distention, No Abnormal Bruit, No Mass. No: Guarding (Male) Exam: Deferred Rectal (Males) Exam: Deferred Back Exam: Normal Inspection, Full Range of Motion. No: CVA Tenderness (L), CVA Tenderness (R), Muscle Spasm Extremities: Normal Inspection, Normal Range of Motion, Non-Tender, No Pedal Edema, Normal Capillary Refill. No: Niels's Sign Neurological: Normal Reflexes (Negative Babinski's), Other (Lethargic) Psychiatric: Other (Unable to assess) Skin Exam: Ecchymosis (Occasional). No: Diaphoretic, Petechiae, Wound/Incision Lymphatic: No Adenopathy #1 Interpretation EKG Date: 09/20/20 Time: 23:01 Rhythm: A-Fib (With additional PVCs) Rate (Beats/Min): 98 [place]: LAD-Left [place] Deviation (Extended left cardiac access) P-Wave: Variable QRS: Other (0.13 seconds representing a right bundle branch block/bifascicular bundle branch block) ST-T: Other (Stable T wave inversion in lead aVL with new T wave inversion in lead I) QT: Normal [place]/PQ Interval: Variable Comparison: Change From Previous EKG (As above since 09/15/2020) EKG Interpretation Comments: 1. Possible lateral wall cardiac ischemia 2. Recurrent atrial fibrillation 3. PVCs 4. Complete bifascicular bundle branch block Course - Vital Signs Last Recorded V/S: Last Vital Signs Temp 37.0 C 09/20/20 22:34 Pulse 96 09/20/20 22:34 Resp 36 H 09/20/20 22:34 BP 92/53 L 09/20/20 22:34 Pulse Ox 87 L 09/20/20 22:34 Vital Signs - 24 hr 09/20/20 22:34 Temperature [ 37.0 C Temporal] Pulse, 96 Peripheral [ Pulse Oximetry] Respiratory 36 H Rate Blood Pressure 92/53 L [Right Upper Arm] O2 Sat by Pulse 87 L Oximetry - Orders/Labs/Meds Orders: Active Orders 24 hr Category Date Time Status Cardiac Monitoring [RC] . DIRECTED Care 09/20/20 22:34 Active EKG Documentation Completion [RC] ASDIRECTED Care 09/20/20 22:34 Active Oxygen Therapy, ED [RC] CONTINUOUS Care 09/20/20 22:34 Active Peripheral IV Care [RC] . DIRECTED Care 09/20/20 22:34 Active Pulse Oximetry [RC] CONTINUOUS Care 09/20/20 22:34 Active Up With Assistance [RC] PFP Care 09/20/20 22:34 Active Vital Signs [RC] PFP Care 09/20/20 22:34 Active Nothing per Oral Now Diet [DIET] Diet 09/20/20 Breakfast Active Chest 1V Frontal [CR] Stat Exams 09/20/20 22:34 Ordered CULTURE BLOOD [BC] Stat Lab 09/20/20 22:38 Ordered CULTURE BLOOD [BC] Stat Lab 09/20/20 22:38 Ordered Lactated Ringers [Ringers, Lactated] 1,000 ml Med 09/20/20 22:45 Active IV ASDIRECTED Sodium Chloride 0.9% [Saline Flush] Med 09/20/20 22:34 Active 10 ml FLUSH ASDIRECTED PRN Blood Culture x2 Reflex Set [OM.PC] Urgent Oth 09/20/20 22:38 Ordered Obtain Past Medical Record [OM.PC] Urgent Oth 09/20/20 22:34 Active Peripheral IV Insertion Adult [OM.PC] Stat Oth 09/20/20 22:34 Ordered Resuscitation Status Stat Resus Stat 09/20/20 22:34 Ordered Medication Orders Lactated Ringer's (Ringers, Lactated) 1,000 mls @ 100 mls/hr IV ASDIRECTED ANUJ Last Admin: 09/20/20 23:17 Dose: 100 mls/hr Documented by: COURTNEY Sodium Chloride (Saline Flush) 10 ml FLUSH ASDIRECTED PRN PRN Reason: Keep Vein Open Last Admin: 09/20/20 23:55 Dose: 10 ml Documented by: Admin: 09/20/20 23:54 Dose: 10 ml Documented by: Admin: 09/20/20 23:19 Dose: 10 ml Documented by: Admin: 09/20/20 23:11 Dose: 10 ml Documented by: COURTNEY Labs: Laboratory Tests 09/20/20 09/20/20 09/20/20 Range/Units 22:55 22:55 22:55 WBC 10.8 H (4.0-10.2) K/uL RBC 4.43 (4.33-5.41) M/uL Hgb 13.4 (13.1-16.8) g/dL Hct 39.4 (39.0-49.0) % MCV 88.9 D (84.0-98.0) fL MCH 30.2 (28.2-33.3) pg MCHC 34.0 (31.7-36.0) g/dL RDW 14.3 H (11.2-14.1) % Plt Count 161 D (150-350) K/uL Neut % (Auto) 92.6 H (45.0-80.0) % Lymph % (Auto) 3.2 L (10.0-50.0) % [place] % (Auto) 4.2 (2.0-14.0) % Eos % (Auto) 0.0 (0.0-5.0) % Baso % (Auto) 0.0 (0.0-2.0) % Neut # (Auto) 9.96 H (1.40-7.00) K/uL Lymph # (Auto) 0.34 L (0.50-3.50) K/uL [place] # (Auto) 0.45 (0.00-1.00) K/uL Eos # (Auto) 0.00 (0.00-0.50) K/uL Baso # (Auto) 0.00 (0.00-0.20) K/uL PT 13.5 H (9.5-12.0) SEC INR 1.4 APTT 34.7 H (24.5-32.8) SEC D-Dimer, Quantitative 1220 H (0-400) ng/mL Sodium (136-145) mmol/L Potassium (3.5-5.1) mmol/L Chloride (98-107) mmol/L Carbon Dioxide (21.0-32.0) mmol/L BUN (7-18) mg/dL Creatinine (0.51-1.17) mg/dL Est Cr Clr Drug Dosing Estimated GFR (MDRD) mL/min Glucose (74-106) mg/dL Lactic Acid (0.4-2.0) mmol/L Uric Acid (2.6-7.2) mg/dL Calcium (8.5-10.1) mg/dL Magnesium (1.8-2.4) mg/dL Total Bilirubin (0.2-1.0) mg/dL AST (15-37) U/L ALT (12-78) U/L Alkaline Phosphatase (46-116) IU/L Creatine Kinase (26-308) U/L Creatine Kinase Index (0.0-2.5) % CK-MB (CK-2) (0.00-3.60) ng/mL Troponin I (0.000-0.056) ng/mL C-Reactive Protein (<=0.9) mg/dL NT-Pro-B Natriuret Pep (0-125) pg/mL Total Protein (6.4-8.2) g/dL Albumin (3.4-5.0) g/dL TSH, Ultra Sensitive (0.358-3.740) mIU/mL 09/20/20 09/20/20 09/20/20 Range/Units 22:55 22:55 22:55 WBC (4.0-10.2) K/uL RBC (4.33-5.41) M/uL Hgb (13.1-16.8) g/dL Hct (39.0-49.0) % MCV (84.0-98.0) fL MCH (28.2-33.3) pg MCHC (31.7-36.0) g/dL RDW (11.2-14.1) % Plt Count (150-350) K/uL Neut % (Auto) (45.0-80.0) % Lymph % (Auto) (10.0-50.0) % [place] % (Auto) (2.0-14.0) % Eos % (Auto) (0.0-5.0) % Baso % (Auto) (0.0-2.0) % Neut # (Auto) (1.40-7.00) K/uL Lymph # (Auto) (0.50-3.50) K/uL [place] # (Auto) (0.00-1.00) K/uL Eos # (Auto) (0.00-0.50) K/uL Baso # (Auto) (0.00-0.20) K/uL PT (9.5-12.0) SEC INR APTT (24.5-32.8) SEC D-Dimer, Quantitative (0-400) ng/mL Sodium 129 L (136-145) mmol/L Potassium 4.1 (3.5-5.1) mmol/L Chloride 96 L (98-107) mmol/L Carbon Dioxide 19.1 L (21.0-32.0) mmol/L BUN 35 H (7-18) mg/dL Creatinine 1.16 (0.51-1.17) mg/dL Est Cr Clr Drug Dosing TNP Estimated GFR (MDRD) 60 mL/min Glucose 210 H (74-106) mg/dL Lactic Acid 3.3 H (0.4-2.0) mmol/L Uric Acid 9.8 H (2.6-7.2) mg/dL Calcium 8.5 (8.5-10.1) mg/dL Magnesium 1.8 (1.8-2.4) mg/dL Total Bilirubin 0.6 (0.2-1.0) mg/dL AST 60 H (15-37) U/L ALT 55 (12-78) U/L Alkaline Phosphatase 70 (46-116) IU/L Creatine Kinase 75 (26-308) U/L Creatine Kinase Index 1.1 (0.0-2.5) % CK-MB (CK-2) 0.80 (0.00-3.60) ng/mL Troponin I 0.153 H* (0.000-0.056) ng/mL C-Reactive Protein 42.9 H (<=0.9) mg/dL NT-Pro-B Natriuret Pep 8305 H (0-125) pg/mL Total Protein 6.1 L (6.4-8.2) g/dL Albumin 1.9 L (3.4-5.0) g/dL TSH, Ultra Sensitive 3.182 (0.358-3.740) mIU/mL Meds: Medications Generic Name Dose Route Start Last Admin Trade Name Freq PRN Reason Stop Dose Admin Lactated Ringer's 1,000 mls @ 100 mls/hr 09/20/20 22:45 09/20/20 23:17 Ringers, Lactated IV 100 mls/hr ASDIRECTED ANUJ Administration Sodium Chloride 10 ml 09/20/20 22:34 09/20/20 23:55 Saline Flush FLUSH 10 ml ASDIRECTED PRN Administration Keep Vein Open Discontinued Medications Generic Name Dose Route Start Last Admin Trade Name Freq PRN Reason Stop Dose Admin Dexamethasone 6 mg 09/20/20 22:38 09/20/20 23:09 Dexamethasone IVPUSH 09/20/20 22:39 6 mg ONETIME ONE Administration Famotidine 40 mg 09/20/20 22:34 09/20/20 23:19 Pepcid IVPUSH 09/20/20 22:35 40 mg ONETIME ONE Administration Lorazepam 1 mg 09/20/20 22:52 09/20/20 23:11 Ativan IVPUSH 09/20/20 22:53 1 mg ONETIME ONE Administration Lorazepam 1 mg 09/20/20 23:39 09/20/20 23:53 Ativan IVPUSH 09/20/20 23:40 1 mg ONETIME ONE Administration Morphine Sulfate 4 mg 09/20/20 23:39 09/20/20 23:53 Morphine IVPUSH 09/20/20 23:40 4 mg ONETIME ONE Administration - Radiology Interpretation Free Text/Narrative:: hall monitor shows atrial fibrillation with average heart rate in the 80s to 90s with occasional PVCs Chest x-ray, portable, shows poor inspiration with severe diffuse pulmonary infiltrates/CHF with severe cardiomegaly. Moderate COPD changes. No pneumothorax. Pacemaker noted. Departure - Departure Time of Disposition: 00:50 Disposition: Admitted As Inpatient 66 Condition: Poor Clinical Impression: COVID-19, PVCs (premature ventricular contractions), Mixed anxiety depressive disorder, CHF (congestive heart failure), HTN (hypertension), Coronary artery disease, Comfort measures only status, Afib, Elevated lactic acid level, Thrombocytopenia, Pneumonia, Hyponatremia, Hyperuricemia - Discharge Information Sepsis Event Note (ED) - Focused Exam Vital Signs: Vital Signs Temp Pulse Resp BP Pulse Ox 09/20/20 22:34 37.0 C 96 36 H 92/53 L 87 L - Problem List & Annotations (1) COVID-19 SNOMED Code(s): 892440314 Code(s): U07.1 - COVID-19 Status: Acute Priority: High Current Visit: Yes Annotation/Comment:: Patient has recent diagnosis of Covid-19 prior to hospitalization in this facility from 09/11 through 09/15/2020. The patient also had sepsis at that time with E. coli and Clostridium perfringens, which was sensitive to IV Rocephin therapy during that hospitalization. The patient was initially discharged to assisted living, however shortly had to [facility] to a prison as a skilled patient secondary to progression of his disease. Significant bilateral pneumonia and/or CHF by today's chest x-ray and physical exam. Reinitiated IV Rocephin therapy with additional IV vancomycin. Patient was sev erely hypoxic with 100% O2 by nonrebreather mask at arrival with immediate initiation of BiPAP, which the patient did not tolerate very well. We did initiate IV sedation with lorazepam and morphine. Family conference/consultation with his daughters Olinda and Paty and also his son/POA, Paulie. Various therapeutic options were discussed, including transfer, initiation of remdesivir, and additional convalescence plasma. The family does not wish to have the patient transferred and is only requesting oxygen therapy and comfort care at this time. They are well aware that he will likely not survive this hospitalization and want him only to be comfortable. Consider hospice consultation in the a.m. The patient was once again started on IV dexamethasone secondary to his oxygen requirement. (2) Pneumonia SNOMED Code(s): 049609845 Code(s): J18.9 - PNEUMONIA, UNSPECIFIED ORGANISM Status: Acute Priority: High Current Visit: Yes Onset Date: 09/20/20 Annotation/Comment:: As above. Qualifiers: Pneumonia type: due to unspecified organism Laterality: bilateral Lung location: unspecified part of lung Qualified Code(s): J18.9 - Pneumonia, unspecified organism (3) Comfort measures only status SNOMED Code(s): 90584200757794 Code(s): Z51.5 - ENCOUNTER FOR PALLIATIVE CARE Status: Chronic Priority: High Current Visit: Yes Annotation/Comment:: Patient's once again confirmed patient's comfort care only status with no hospital transfer, etc. as above. Note that this was also the patient's wishes at time of recent hospitalization. Emotional support was provided to the family. (4) CHF (congestive heart failure) SNOMED Code(s): 32451772 Code(s): I50.9 - HEART FAILURE, UNSPECIFIED Status: Acute Priority: High Current Visit: Yes Annotation/Comment:: Recurrent CHF likely once again secondary to current Covid infection/myocarditis with hospitalization for similar type symptoms in this facility from 09/15 through 09/11/2020. Note that the patient had also been hospitalized at [facility] during the last month for his CHF. Comfort Care desired by patient and his family as above. IV Lasix with caution. Note significant secondary hyponatremia. Qualifiers: Heart failure type: unspecified Heart failure chronicity: acute on chronic Qualified Code(s): I50.9 - Heart failure, unspecified (5) Coronary artery disease SNOMED Code(s): 35373881 Code(s): I25.10 - ATHSCL HEART DISEASE OF [place] CORONARY ARTERY W/O ANG PCTRS Status: Chronic Priority: High Current Visit: Yes Annotation/Comment:: No known chest pain or anginal type symptoms despite CHF likely decompensated from his current sepsis and COVID-19 infection. Note comfort care. Some lateral wall cardiac ischemia by today's EKG with troponin I also elevated secondary to his CHF. Normal CK-MB and cardiac index. Qualifiers: Coronary Disease-Associated Artery/Lesion type: [place] artery [place] vs. transplanted heart: [place] heart Associated angina: without angina Qualified Code(s): I25.10 - Atherosclerotic heart disease of [place] coronary artery without angina pectoris (6) Elevated lactic acid level SNOMED Code(s): 8945268 Code(s): R79.89 - OTHER SPECIFIED ABNORMAL FINDINGS OF BLOOD CHEMISTRY Status: Acute Priority: High Current Visit: Yes Annotation/Comment:: IV fluids with caution initiated in the emergency room. Change to 3% sodium chloride infusion with caution secondary to his significant hyponatremia. IV antibiotics initiated as above. Note previous hospitalization with sepsis as above and probable sepsis at this time. Comfort care as above. (7) HTN (hypertension) SNOMED Code(s): 52533026 Code(s): I10 - ESSENTIAL (PRIMARY) HYPERTENSION Status: Acute Priority: High Current Visit: Yes Annotation/Comment:: Blood pressures under good control despite possible sepsis as above. Continue to observe closely. Consider additional JACK inhibitor therapy secondary to current COVID-19 infection and his CHF. Qualifiers: Hypertension type: essential hypertension Qualified Code(s): I10 - Essential (primary) hypertension (8) Hyperuricemia SNOMED Code(s): 95327884 Code(s): E79.0 - HYPERURICEMIA W/O SIGNS OF INFLAM ARTHRIT AND TOPHACEOUS DIS Status: Chronic Priority: Medium Current Visit: Yes Annotation/Comment:: Elevated uric acid level on admission with no recent gout type symptoms. Observe closely secondary to IV Lasix therapy. (9) Hyponatremia SNOMED Code(s): 49818713 Code(s): E87.1 - HYPO-OSMOLALITY AND HYPONATREMIA Status: Acute Priority: High Current Visit: Yes Onset Date: 09/20/20 Annotation/Comment:: As above (10) Mixed anxiety depressive disorder SNOMED Code(s): 815587568 Code(s): F41.8 - OTHER SPECIFIED ANXIETY DISORDERS Status: Acute Priority: High Current Visit: Yes Onset Date: 09/15/20 Annotation/Comment:: The patient was very tearful and emotional at time of discharge from recent hospitalization secondary to his multiple health issues as above. Emotional support was provided. He did not wish to have any medical therapy for his emotions at that time. Patient did seem to come to terms with his end-stage diseases as above. 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 Note current pacemaker. (12) Thrombocytopenia SNOMED Code(s): 650195159 Code(s): D69.6 - THROMBOCYTOPENIA, UNSPECIFIED Status: Acute Priority: High Current Visit: Yes Onset Date: 09/14/20 Annotation/Comment:: Thrombocytopenia improved from recent discharge on 09/15. Note D-dimer elevation and previous Xarelto therapy. The patient will be changed to subcu heparin therapy since he is no longer able to take oral medications. (13) Afib SNOMED Code(s): 14541843 Code(s): I48.91 - UNSPECIFIED ATRIAL FIBRILLATION Status: Chronic Priorit y: Medium Current Visit: Yes Annotation/Comment:: Currently on Xarelto. Change to sodium heparin as above, which will also be beneficial for his COVID- 19. Qualifiers: Atrial fibrillation type: persistent (not longstanding) Qualified Code(s): I48.19 - Other persistent atrial fibrillation; I48.1 - Persistent atrial fibrillation (14) D-dimer, elevated SNOMED Code(s): 767390077 Code(s): R79.89 - OTHER SPECIFIED ABNORMAL FINDINGS OF BLOOD CHEMISTRY Status: Acute Priority: High Current Visit: No Onset Date: 09/14/20 Annotation/Comment:: As above. No further CTA of the chest or venous Doppler studies at this time secondary to comfort care. (15) Hypoalbuminemia SNOMED Code(s): 908223353 Code(s): E88.09 - OTH DISORDERS OF PLASMA-PROTEIN METABOLISM, NEC Status: Chronic Priority: Medium Current Visit: Yes Annotation/Comment:: Observe for now. - Problem List Review Problem List Initiated/Reviewed/Updated: Yes - My Orders Last 24 Hours: My Active Orders 09/20/20 Breakfast Nothing per Oral Now Diet [DIET] 09/20/20 22:34 Cardiac Monitoring [RC] . DIRECTED EKG Documentation Completion [RC] ASDIRECTED Oxygen Therapy, ED [RC] CONTINUOUS Peripheral IV Care [RC] . DIRECTED Pulse Oximetry [RC] CONTINUOUS Up With Assistance [RC] PFP Vital Signs [RC] PFP Chest 1V Frontal [CR] Stat Sodium Chloride 0.9% [Saline Flush] 10 ml FLUSH ASDIRECTED PRN Obtain Past Medical Record [OM.PC] Urgent Peripheral IV Insertion Adult [OM.PC] Stat Resuscitation Status Stat 09/20/20 22:38 CULTURE BLOOD [BC] Stat CULTURE BLOOD [BC] Stat Blood Culture x2 Reflex Set [OM.PC] Urgent 09/20/20 22:45 Lactated Ringers [Ringers, Lactated] 1,000 ml IV ASDIRECTED - Assessment/Plan Admission H&P: Please use this note as an admission H&P Last 24 Hours: My Active Orders 09/20/20 Breakfast Nothing per Oral Now Diet [DIET] 09/20/20 22:34 Cardiac Monitoring [RC] . DIRECTED EKG Documentation Completion [RC] ASDIRECTED Oxygen Therapy, ED [RC] CONTINUOUS Peripheral IV Care [RC] . DIRECTED Pulse Oximetry [RC] CONTINUOUS Up With Assistance [RC] PFP Vital Signs [RC] PFP Chest 1V Frontal [CR] Stat Sodium Chloride 0.9% [Saline Flush] 10 ml FLUSH ASDIRECTED PRN Obtain Past Medical Record [OM.PC] Urgent Peripheral IV Insertion Adult [OM.PC] Stat Resuscitation Status Stat 09/20/20 22:38 CULTURE BLOOD [BC] Stat CULTURE BLOOD [BC] Stat Blood Culture x2 Reflex Set [OM.PC] Urgent 09/20/20 22:45 Lactated Ringers [Ringers, Lactated] 1,000 ml IV ASDIRECTED Assessment:: As above Plan: As above. Extensive precautions were given to the patient's family as above, who are in agreement with the treatment plan. The patient will require about 3- 4 days of inpatient/acute care secondary to multiple health problems as above. Prognosis is extremely poor with patient likely to during this hospitalization.
[2020-09-20] MEDS ORDERED: Dexamethasone 10 MG/ML SDV IVPUSH ONE (22:38)
[2020-09-20] MEDS ORDERED: Lactated Ringers 1,000 ML IV SCH (22:45)
[2020-09-20] MEDS ORDERED: LORazepam 2 MG/ML SDV IVPUSH ONE ×2 (22:52→23:39)
[2020-09-20] MEDS: Sodium Chloride 0.9% 10 ML Syringe FLUSH PRN ×4 (23:11→23:55)
[2020-09-20 23:22] LABS: PTT,PARTIAL THROMBOPLSTIN TIME 34.7 SEC (24.5-32.8)
[2020-09-20] MEDS ORDERED: Morphine 4 MG/ML Syringe IVPUSH ONE (23:39)
[2020-09-20 23:48] LABS: CHLORIDE,CL 96 mmol/L (98-107); SODIUM,NA 129 mmol/L (136-145)
[2020-09-21] MEDS ORDERED: Sodium Chloride 0.9% 10 ML Syringe FLUSH PRN (01:34)
[2020-09-21] MEDS ORDERED: LORazepam 2 MG/ML SDV IVPUSH PRN (01:39)
[2020-09-21] MEDS ORDERED: cefTRIAXone 1 GM in Sodium Chloride 0.9% 100 ML IV SCH (01:45)
[2020-09-21] MEDS ORDERED: Sodium Chloride 3% 500 ML IV SCH (01:45)
[2020-09-21] MEDS ORDERED: Furosemide 40 MG/4 ML VIAL IVPUSH SCH (01:45)
[2020-09-21] MEDS ORDERED: Acetaminophen 650 MG Supp RECTAL PRN (01:55)
[2020-09-21] MEDS ORDERED: Acetaminophen 325 MG Tab PO PRN (01:55)
[2020-09-21] MEDS: Morphine 2 MG/ML SYRINGE IVPUSH PRN ×4 (02:43→10:45)
[2020-09-21] MEDS: Sodium Chloride 0.9% 10 ML Syringe FLUSH PRN ×7 (02:44→10:45)
[2020-09-21] MEDS: Heparin Sodium 5,000 Units/ML Vial SUBCUT SCH ×2 (02:50→09:50)
[2020-09-21] MEDS ORDERED: LORazepam 2 MG/ML SDV IVPUSH ONE (03:22)
[2020-09-21] MEDS ORDERED: Morphine 2 MG/ML SYRINGE IVPUSH ONE (03:22)
[2020-09-21] MEDS ORDERED: Albuterol 0.083% 2.5 MG/3 ML Neb Soln NEB PRN (03:23)
[2020-09-21] MEDS: Albuterol/Ipratropium 3.0-0.5 MG/3 ML Neb Soln NEB SCH ×2 (05:04→08:17)
[2020-09-21] MEDS: LORazepam 2 MG/ML SDV IVPUSH PRN ×3 (05:20→11:50)
[2020-09-21] MEDS ORDERED: Potassium Chloride 20 MEQ Tab.ER PO SCH (08:00)
[2020-09-21] MEDS ORDERED: D5 1/2 NS w/ 40 mEq/L KCl 1,000 ML IV SCH (09:45)
[2020-09-21] MEDS ORDERED: Atropine 0.1 MG/ML 10 ML Syringe IVPUSH PRN (09:58)
[2020-09-21] MEDS ORDERED: Atropine 1% Ophth Soln 5 ML BOTTLE SL PRN (10:00)
--- NOTE | 2020-09-21 13:37 | PCM.DCSUM1 ---
Discharge Summary - Hospital Course HPI Initial Comments: See emergency room note/admission H&P Brief History: See emergency room note/admission H&P Diagnosis: Stroke: No Modified Mcclure Scale: No Symptoms at All Modified Mcclure Scale Score: 0 - Discharge Data Discharge Date: 09/21/20 Discharge Disposition: 20 Preliminary Cause of *Q: Other_Special Instruction (Pneumonia with COVID- 19 infection, CHF) Condition: - Referral to Home Health Primary Care Physician: PCP None - Discharge Diagnosis/Problem(s) (1) COVID-19 SNOMED Code(s): 435095150 ICD Code: U07.1 - COVID-19 Status: Acute Priority: High Current Visit: Yes Problem Details: The patient at 11:55 AM on 09/21/2020 and was kept extremely comfortable with aggressive IV Ativan and IV morphine therapy. Multiple telephone consultations with multiple family members as below, brittney g with our nursing staff, with the family comfortable of discontinuing BiPAP therapy and changing to high flow nasal cannula at 8 L/min. His O2 sats only remained in the 70th percentile with this therapy, however, despite DuoNeb treatments. Patient has recent diagnosis of Covid-19 prior to hospitalization in this facility from 09/11 through 09/15/2020. The patient also had sepsis at that time with E. coli and Clostridium perfringens, which was sensitive to IV Rocephin therapy during that hospitalization. The patient was initially discharged to assisted living, however shortly had to go to a residential as a skilled patient secondary to progression of his disease. Significant bilateral pneumonia and/or CHF by chest x-ray and physical exam on admission. Reinitiated IV Rocephin therapy with additional IV vancomycin. Patient was severely hypoxic with 100% O2 by nonrebreather mask at arrival by ambulance with immediate initiation of BiPAP in the emergency room, which the patient did not tolerate very well. We did initiate aggressive IV sedation with lorazepam and morphine with overall good results as above. Family conference/consultation with his daughters Olinda and Paty and also his son/POA, Paulie at time of admission. Various therapeutic options were discussed, including patient transfer, initiation of remdesivir, and additional convalescence plasma. The family did not wish to have the patient transferred and only requested oxygen therapy and comfort care at this time. They are well aware that he would likely not survive this hospitalization, and they wanted him only to be comfortable. The patient was once again started on IV dexamethasone secondary to his oxygen requirement. Emotional support was provided to multiple family members secondary to the patient's . (2) Pneumonia SNOMED Code(s): 830667764 ICD Code: J18.9 - PNEUMONIA, UNSPECIFIED ORGANISM Status: Acute Priority: High Current Visit: Yes Onset Date: 09/20/20 Problem Details: As above. Qualifiers: Pneumonia type: due to unspecified organism Laterality: bilateral Lung location: unspecified part of lung Qualified Code(s): J18.9 - Pneumonia, unspecified organism (3) Comfort measures only status SNOMED Code(s): 94084142731952 ICD Code: Z51.5 - ENCOUNTER FOR PALLIATIVE CARE Status: Chronic Priority: High Current Visit: Yes Problem Details: Patient's family once again confirmed patient's comfort care only status with no hospital transfer, etc. as above. Note that this was also the patient's wishes at time of recent hospitalization. Emotional support was provided to the family on admission and during this entire hospitalization. 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 Note that the patient had also been hospitalized at [facility] during the last month for his CHF. Comfort Care desired by patient and his family as above. IV Lasix with caution. Note significant secondary hyponatremia. Qualifiers: Heart failure type: unspecified Heart failure chronicity: acute on chronic Qualified Code(s): I50.9 - Heart failure, unspecified (5) Coronary artery disease SNOMED Code(s): 96257336 ICD Code: I25.10 - ATHSCL HEART DISEASE OF [place] CORONARY ARTERY W/O ANG PCTRS Status: Chronic Priority: High Current Visit: Yes Problem Details: No known chest pain or anginal type symptoms despite CHF likely decompensated from his current sepsis and COVID-19 infection. Note comfort care. Some lateral wall cardiac ischemia by EKG on admission with troponin I also elevated secondary to his CHF, although this did improve earlier this morning. Normal CK-MB and cardiac index. Qualifiers: Coronary Disease-Associated Artery/Lesion type: [place] artery [place] vs. transplanted heart: [place] heart Associated angina: without angina Qualified Code(s): I25.10 - Atherosclerotic heart disease of [place] coronary artery without angina pectoris (6) Elevated lactic acid level SNOMED Code(s): 1781870 ICD Code: R79.89 - OTHER SPECIFIED ABNORMAL FINDINGS OF BLOOD CHEMISTRY Status: Acute Priority: High Current Visit: Yes Problem Details: Progressive lactic acid elevation in spite of IV fluids and IV antibiotic therapy as above. IV fluids with caution were initiated in the emergency room. Change to 3% sodium chloride infusion with caution at about 5 AM on 09/21 secondary to his significant hyponatremia. Note previous hospitalization with sepsis as above and probable sepsis at this time. Comfort care as above. (7) HTN (hypertension) SNOMED Code(s): 74014892 ICD Code: I10 - ESSENTIAL (PRIMARY) HYPERTENSION Status: Acute Priority: High Current Visit: Yes Problem Details: Blood pressures under good control initially despite possible sepsis as above. Progressive hypotension during this hospitalization with known vasopressor therapy secondary to his comfort care status and family's request. Patient was on an JACK inhibitor, however could not take oral medications during this hospitalization. Qualifiers: Hypertension type: essential hypertension Qualified Code(s): I10 - Essential (primary) hypertension (8) Hyperuricemia SNOMED Code(s): 75588593 ICD Code: E79.0 - HYPERURICEMIA W/O SIGNS OF INFLAM ARTHRIT AND TOPHACEOUS DIS Status: Chronic Priority: Medium Current Visit: Yes Problem Details: Elevated uric acid level on admission with no recent gout type symptoms. Observed closely secondary to IV Lasix therapy. (9) Hyponatremia SNOMED Code(s): 81280773 ICD Code: E87.1 - HYPO-OSMOLALITY AND HYPONATREMIA Status: Acute Priority: High Current Visit: Yes Onset Date: 09/20/20 Problem Details: As above (10) Mixed anxiety depressive disorder SNOMED Code(s): 102465874 ICD Code: F41.8 - OTHER SPECIFIED ANXIETY DISORDERS Status: Acute Priority: High Current Visit: Yes Onset Date: 09/15/20 Problem Details: The patient was very tearful and emotional at time of discharge from recent hospitalization secondary to his multiple health issues as above. Emotional support was provided. He did not wish to have any medical therapy for his emotions at that time. Patient did seem to come to terms with his end-stage diseases as above. (11) PVCs (premature ventricular contractions) SNOMED Code(s): 03298608 ICD Code: I49.3 - VENTRICULAR PREMATURE DEPOLARIZATION Status: Chronic Priority: Medium Current Visit: Yes Onset Date: 09/15/20 Problem Details: Observed during this hospitalization with no change in medical therapy. Note current pacemaker. (12) Thrombocytopenia SNOMED Code(s): 477284563 ICD Code: D69.6 - THROMBOCYTOPENIA, UNSPECIFIED Status: Acute Priority: High Current Visit: Yes Onset Date: 09/14/20 Problem Details: Thrombocytopenia improved from recent discharge on 09/15. Note D-dimer elevat ion and previous Xarelto therapy. The patient was changed to subcutaneous heparin therapy since he is no longer able to take oral medications and secondary to his current/previous Xarelto therapy and current COVID-19 infection. (13) Afib SNOMED Code(s): 69178174 ICD Code: I48.91 - UNSPECIFIED ATRIAL FIBRILLATION Status: Chronic Priority: Medium Current Visit: Yes Problem Details: Prior to admission on Xarelto. Changed to sodium heparin as above, which would have also been beneficial for his COVID-19 infection as an anti-inflammatory agent. Qualifiers: Atrial fibrillation type: persistent (not longstanding) Qualified Code(s): I48.19 - Other persistent atrial fibrillation; I48.1 - Persistent atrial fibrillation (14) D-dimer, elevated SNOMED Code(s): 626062874 ICD Code: R79.89 - OTHER SPECIFIED ABNORMAL FINDINGS OF BLOOD CHEMISTRY Status: Acute Priority: High Current Visit: No Onset Date: 09/14/20 Problem Details: As above. No further CTA of the chest or venous Doppler studies at this time secondary to comfort care. (15) Hypoalbuminemia SNOMED Code(s): 605293732 ICD Code: E88.09 - OTH DISORDERS OF PLASMA-PROTEIN METABOLISM, NEC Status: Chronic Priority: Medium Current Visit: Yes Problem Details: Observe for now. - Patient Instructions Diet: NPO (During this hospitalization) - Discharge Plan *PRESCRIPTION DRUG MONITORING PROGRAM REVIEWED*: Not Applicable *COPY OF PRESCRIPTION DRUG MONITORING REPORT IN PATIENT ELI: Not Applicable Home Medications: Home Meds Aspirin [Halfprin] 81 mg PO DAILY 09/26/14 [History] Furosemide [Lasix] 40 mg PO QAM 09/26/14 [History] Nitroglycerin [Nitrostat] 1 tab SL ASDIRECTED PRN 09/26/14 [History] Ubidecarenone [Coenzyme Q10] 100 mg PO BID 09/26/14 [History] Gabapentin [Neurontin] 100 mg PO BEDTIME 07/18/20 [History] Levothyroxine Sodium [Synthroid] 75 mcg PO DAILY 07/18/20 [History] Omeprazole Magnesium [Prilosec Otc] 20 mg PO QAM 07/18/20 [History] Rivaroxaban [Xarelto] 20 mg PO QAM 07/18/20 [History] Flaxseed Oil [Flaxseed] 1 cap PO DAILY 09/11/20 [History] Multivitamin [Daily Multiple Vitamin] 1 tab PO DAILY 09/11/20 [History] atorvaSTATin Calcium [Lipitor] 1 tab PO BEDTIME 09/11/20 [History] Acetaminophen [Acetaminophen Extra Strength] 500 mg PO BID 09/15/20 [History] Acetaminophen [Acetaminophen Extra Strength] 500 mg PO Q4H PRN 09/15/20 [History] Amoxicillin/Potassium Clav [Augmentin 875-125 Tablet] 1 each PO BIDMEALS #20 tablet 09/15/20 [Rx] Calcium Carbonate/Vitamin D3 [Calcium 600-Vit D3 400 Tablet] 2 tab PO QAM 09/15/20 [History] Doxycycline Monohydrate 100 mg PO BID #20 cap 09/15/20 [Rx] Famotidine [Pepcid] 20 mg PO QPM #30 tab 09/15/20 [Rx] Furosemide [Lasix] 20 mg PO DAILY@1200 #20 tab 09/15/20 [Rx] Magnesium Oxide 400 mg PO BID #20 tablet 09/15/20 [Rx] Metoprolol Succinate 25 mg PO DAILY 09/15/20 [History] [place]orn-3S/DHA/Epa/Fish Oil [[place]orn-3 Fish Oil 1,200 mg Sfgl] 1,200 mg PO DAILY 09/15/20 [History] lisinopriL [Lisinopril] 5 mg PO DAILY 09/15/20 [History] Forms: ED Department Discharge Referrals: PCP,None [Primary Care Provider] - - Discharge Summary/Plan Comment DC Time >30 min.: Yes (Coordination of care ) Discharge Summary/Plan Comment: The patient's body was released to the mortuary of the patient's choice. - General Info Date of Service: 09/21/20 Functional Status: Reports: Pain Controlled - Review of Systems Pulmonary: Reports: Other (No spontaneous respirations) Cardiovascular: Reports: Other (Asystole after pacer was deactivated) Neurological: Reports: Other (No neurological response) - Patient Data Vitals - Most Recent: Last Vital Signs Temp 36.0 C L 09/21/20 08:35 Pulse 94 09/21/20 08:35 Resp 30 H 09/21/20 08:35 BP 84/50 L 09/21/20 08:35 Pulse Ox 79 L 09/21/20 08:35 Vital Signs - 24 hr 09/20/20 09/20/20 09/21/20 22:34 23:30 00:30 Temperature [ 37.0 C Temporal] Pulse, Peripheral [ Apical] Pulse, 96 90 87 Peripheral [ Pulse Oximetry] Respiratory 36 H 28 H 30 H Rate Blood Pressure 92/53 L 87/56 L 95/64 [Right Upper Arm] O2 Sat by Pulse 87 L 94 L 92 L Oximetry 09/21/20 09/21/20 09/21/20 04:00 08:20 08:35 Temperature [ 36.1 C 36.0 C L Temporal] Pulse, 94 Peripheral [ Apical] Pulse, 117 H Peripheral [ Pulse Oximetry] Respiratory 26 H 36 H 30 H Rate Blood Pressure 84/50 L [Right Upper Arm] O2 Sat by Pulse 64 L 100 79 L Oximetry Weight - Most Recent: 104.326 kg I&O - Last 24 hours: Intake & Output 09/20/20 09/21/20 09/21/20 22:59 06:59 14:59 Intake Total 642 Output Total 400 Balance 242 Imaging Impressions - Last 24 hrs: quality assurance monitor final shows atrial fibrillation with average heart rate in the 80s to 90s with occasional PVCs Chest x-ray, portable, shows poor inspiration with severe diffuse pulmonary infiltrates/CHF with severe cardiomegaly. Moderate COPD changes. No pneumothorax. Pacemaker noted. Lab Results - Last 24 hrs: Laboratory Results - last 24 hr 09/20/20 09/20/20 09/20/20 Range/Units 22:55 22:55 22:55 WBC 10.8 H (4.0-10.2) K/uL RBC 4.43 (4.33-5.41) M/uL Hgb 13.4 (13.1-16.8) g/dL Hct 39.4 (39.0-49.0) % MCV 88.9 D (84.0-98.0) fL MCH 30.2 (28.2-33.3) pg MCHC 34.0 (31.7-36.0) g/dL RDW 14.3 H (11.2-14.1) % Plt Count 161 D (150-350) K/uL Neut % (Auto) 92.6 H (45.0-80.0) % Lymph % (Auto) 3.2 L (10.0-50.0) % [place] % (Auto) 4.2 (2.0-14.0) % Eos % (Auto) 0.0 (0.0-5.0) % Baso % (Auto) 0.0 (0.0-2.0) % Neut # (Auto) 9.96 H (1.40-7.00) K/uL Lymph # (Auto) 0.34 L (0.50-3.50) K/uL [place] # (Auto) 0.45 (0.00-1.00) K/uL Eos # (Auto) 0.00 (0.00-0.50) K/uL Baso # (Auto) 0.00 (0.00-0.20) K/uL PT 13.5 H (9.5-12.0) SEC INR 1.4 APTT 34.7 H (24.5-32.8) SEC D-Dimer, Quantitative 1220 H (0-400) ng/mL Sodium (136-145) mmol/L Potassium (3.5-5.1) mmol/L Chloride (98-107) mmol/L Carbon Dioxide (21.0-32.0) mmol/L BUN (7-18) mg/dL Creatinine (0.51-1.17) mg/dL Est Cr Clr Drug Dosing Estimated GFR (MDRD) mL/min Glucose (74-106) mg/dL Lactic Acid (0.4-2.0) mmol/L Uric Acid (2.6-7.2) mg/dL Calcium (8.5-10.1) mg/dL Magnesium (1.8-2.4) mg/dL Total Bilirubin (0.2-1.0) mg/dL AST (15-37) U/L ALT (12-78) U/L Alkaline Phosphatase (46-116) IU/L Creatine Kinase (26-308) U/L Creatine Kinase Index (0.0-2.5) % CK-MB (CK-2) (0.00-3.60) ng/mL Troponin I (0.000-0.056) ng/mL C-Reactive Protein (<=0.9) mg/dL NT-Pro-B Natriuret Pep (0-125) pg/mL Total Protein (6.4-8.2) g/dL Albumin (3.4-5.0) g/dL TSH, Ultra Sensitive (0.358-3.740) mIU/mL 09/20/20 09/20/20 09/20/20 Range/Units 22:55 22:55 22:55 WBC (4.0-10.2) K/uL RBC (4.33-5.41) M/uL Hgb (13.1-16.8) g/dL Hct (39.0-49.0) % MCV (84.0-98.0) fL MCH (28.2-33.3) pg MCHC (31.7-36.0) g/dL RDW (11.2-14.1) % Plt Count (150-350) K/uL Neut % (Auto) (45.0-80.0) % Lymph % (Auto) (10.0-50.0) % [place] % (Auto) (2.0-14.0) % Eos % (Auto) (0.0-5.0) % Baso % (Auto) (0.0-2.0) % Neut # (Auto) (1.40-7.00) K/uL Lymph # (Auto) (0.50-3.50) K/uL [place] # (Auto) (0.00-1.00) K/uL Eos # (Auto) (0.00-0.50) K/uL Baso # (Auto) (0.00-0.20) K/uL PT (9.5-12.0) SEC INR APTT (24.5-32.8) SEC D-Dimer, Quantitative (0-400) ng/mL Sodium 129 L (136-145) mmol/L Potassium 4.1 (3.5-5.1) mmol/L Chloride 96 L (98-107) mmol/L Carbon Dioxide 19.1 L (21.0-32.0) mmol/L BUN 35 H (7-18) mg/dL Creatinine 1.16 (0.51-1.17) mg/dL Est Cr Clr Drug Dosing TNP Estimated GFR (MDRD) 60 mL/min Glucose 210 H (74-106) mg/dL Lactic Acid 3.3 H (0.4-2.0) mmol/L Uric Acid 9.8 H (2.6-7.2) mg/dL Calcium 8.5 (8.5-10.1) mg/dL Magnesium 1.8 (1.8-2.4) mg/dL Total Bilirubin 0.6 (0.2-1.0) mg/dL AST 60 H (15-37) U/L ALT 55 (12-78) U/L Alkaline Phosphatase 70 (46-116) IU/L Creatine Kinase 75 (26-308) U/L Creatine Kinase Index 1.1 (0.0-2.5) % CK-MB (CK-2) 0.80 (0.00-3.60) ng/mL Troponin I 0.153 H* (0.000-0.056) ng/mL C-Reactive Protein 42.9 H (<=0.9) mg/dL NT-Pro-B Natriuret Pep 8305 H (0-125) pg/mL Total Protein 6.1 L (6.4-8.2) g/dL Albumin 1.9 L (3.4-5.0) g/dL TSH, Ultra Sensitive 3.182 (0.358-3.740) mIU/mL 09/21/20 09/21/20 Range/Units 07:15 07:15 WBC (4.0-10.2) K/uL RBC (4.33-5.41) M/uL Hgb (13.1-16.8) g/dL Hct (39.0-49.0) % MCV (84.0-98.0) fL MCH (28.2-33.3) pg MCHC (31.7-36.0) g/dL RDW (11.2-14.1) % Plt Count (150-350) K/uL Neut % (Auto) (45.0-80.0) % Lymph % (Auto) (10.0-50.0) % [place] % (Auto) (2.0-14.0) % Eos % (Auto) (0.0-5.0) % Baso % (Auto) (0.0-2.0) % Neut # (Auto) (1.40-7.00) K/uL Lymph # (Auto) (0.50-3.50) K/uL [place] # (Auto) (0.00-1.00) K/uL Eos # (Auto) (0.00-0.50) K/uL Baso # (Auto) (0.00-0.20) K/uL PT (9.5-12.0) SEC INR APTT (24.5-32.8) SEC D-Dimer, Quantitative (0-400) ng/mL Sodium (136-145) mmol/L Potassium (3.5-5.1) mmol/L Chloride (98-107) mmol/L Carbon Dioxide (21.0-32.0) mmol/L BUN (7-18) mg/dL Creatinine (0.51-1.17) mg/dL Est Cr Clr Drug Dosing Estimated GFR (MDRD) mL/min Glucose (74-106) mg/dL Lactic Acid 4.1 H (0.4-2.0) mmol/L Uric Acid (2.6-7.2) mg/dL Calcium (8.5-10.1) mg/dL Magnesium (1.8-2.4) mg/dL Total Bilirubin (0.2-1.0) mg/dL AST (15-37) U/L ALT (12-78) U/L Alkaline Phosphatase (46-116) IU/L Creatine Kinase 79 (26-308) U/L Creatine Kinase Index 1.6 (0.0-2.5) % CK-MB (CK-2) 1.30 (0.00-3.60) ng/mL Troponin I 0.131 H* (0.000-0.056) ng/mL C-Reactive Protein (<=0.9) mg/dL NT-Pro-B Natriuret Pep (0-125) pg/mL Total Protein (6.4-8.2) g/dL Albumin (3.4-5.0) g/dL TSH, Ultra Sensitive (0.358-3.740) mIU/mL Laboratory Tests 09/20/20 09/20/20 09/20/20 Range/Units 22:55 22:55 22:55 WBC 10.8 H (4.0-10.2) K/uL RBC 4.43 (4.33-5.41) M/uL Hgb 13.4 (13.1-16.8) g/dL Hct 39.4 (39.0-49.0) % MCV 88.9 D (84.0-98.0) fL MCH 30.2 (28.2-33.3) pg MCHC 34.0 (31.7-36.0) g/dL RDW 14.3 H (11.2-14.1) % Plt Count 161 D (150-350) K/uL Neut % (Auto) 92.6 H (45.0-80.0) % Lymph % (Auto) 3.2 L (10.0-50.0) % [place] % (Auto) 4.2 (2.0-14.0) % Eos % (Auto) 0.0 (0.0-5.0) % Baso % (Auto) 0.0 (0.0-2.0) % Neut # (Auto) 9.96 H (1.40-7.00) K/uL Lymph # (Auto) 0.34 L (0.50-3.50) K/uL [place] # (Auto) 0.45 (0.00-1.00) K/uL Eos # (Auto) 0.00 (0.00-0.50) K/uL Baso # (Auto) 0.00 (0.00-0.20) K/uL PT 13.5 H (9.5-12.0) SEC INR 1.4 APTT 34.7 H (24.5-32.8) SEC D-Dimer, Quantitative 1220 H (0-400) ng/mL Sodium (136-145) mmol/L Potassium (3.5-5.1) mmol/L Chloride (98-107) mmol/L Carbon Dioxide (21.0-32.0) mmol/L BUN (7-18) mg/dL Creatinine (0.51-1.17) mg/dL Est Cr Clr Drug Dosing Estimated GFR (MDRD) mL/min Glucose (74-106) mg/dL Lactic Acid (0.4-2.0) mmol/L Uric Acid (2.6-7.2) mg/dL Calcium (8.5-10.1) mg/dL Magnesium (1.8-2.4) mg/dL Total Bilirubin (0.2-1.0) mg/dL AST (15-37) U/L ALT (12-78) U/L Alkaline Phosphatase (46-116) IU/L Creatine Kinase (26-308) U/L Creatine Kinase Index (0.0-2.5) % CK-MB (CK-2) (0.00-3.60) ng/mL Troponin I (0.000-0.056) ng/mL C-Reactive Protein (<=0.9) mg/dL NT-Pro-B Natriuret Pep (0-125) pg/mL Total Protein (6.4-8.2) g/dL Albumin (3.4-5.0) g/dL TSH, Ultra Sensitive (0.358-3.740) mIU/mL 09/20/20 09/20/20 09/20/20 Range/Units 22:55 22:55 22:55 WBC (4.0-10.2) K/uL RBC (4.33-5.41) M/uL Hgb (13.1-16.8) g/dL Hct (39.0-49.0) % MCV (84.0-98.0) fL MCH (28.2-33.3) pg MCHC (31.7-36.0) g/dL RDW (11.2-14.1) % Plt Count (150-350) K/uL Neut % (Auto) (45.0-80.0) % Lymph % (Auto) (10.0-50.0) % [place] % (Auto) (2.0-14.0) % Eos % (Auto) (0.0-5.0) % Baso % (Auto) (0.0-2.0) % Neut # (Auto) (1.40-7.00) K/uL Lymph # (Auto) (0.50-3.50) K/uL [place] # (Auto) (0.00-1.00) K/uL Eos # (Auto) (0.00-0.50) K/uL Baso # (Auto) (0.00-0.20) K/uL PT (9.5-12.0) SEC INR APTT (24.5-32.8) SEC D-Dimer, Quantitative (0-400) ng/mL Sodium 129 L (136-145) mmol/L Potassium 4.1 (3.5-5.1) mmol/L Chloride 96 L (98-107) mmol/L Carbon Dioxide 19.1 L (21.0-32.0) mmol/L BUN 35 H (7-18) mg/dL Creatinine 1.16 (0.51-1.17) mg/dL Est Cr Clr Drug Dosing TNP Estimated GFR (MDRD) 60 mL/min Glucose 210 H (74-106) mg/dL Lactic Acid 3.3 H (0.4-2.0) mmol/L Uric Acid 9.8 H (2.6-7.2) mg/dL Calcium 8.5 (8.5-10.1) mg/dL Magnesium 1.8 (1.8-2.4) mg/dL Total Bilirubin 0.6 (0.2-1.0) mg/dL AST 60 H (15-37) U/L ALT 55 (12-78) U/L Alkaline Phosphatase 70 (46-116) IU/L Creatine Kinase 75 (26-308) U/L Creatine Kinase Index 1.1 (0.0-2.5) % CK-MB (CK-2) 0.80 (0.00-3.60) ng/mL Troponin I 0.153 H* (0.000-0.056) ng/mL C-Reactive Protein 42.9 H (<=0.9) mg/dL NT-Pro-B Natriuret Pep 8305 H (0-125) pg/mL Total Protein 6.1 L (6.4-8.2) g/dL Albumin 1.9 L (3.4-5.0) g/dL TSH, Ultra Sensitive 3.182 (0.358-3.740) mIU/mL 09/21/20 09/21/20 Range/Units 07:15 07:15 WBC (4.0-10.2) K/uL RBC (4.33-5.41) M/uL Hgb (13.1-16.8) g/dL Hct (39.0-49.0) % MCV (84.0-98.0) fL MCH (28.2-33.3) pg MCHC (31.7-36.0) g/dL RDW (11.2-14.1) % Plt Count (150-350) K/uL Neut % (Auto) (45.0-80.0) % Lymph % (Auto) (10.0-50.0) % [place] % (Auto) (2.0-14.0) % Eos % (Auto) (0.0-5.0) % Baso % (Auto) (0.0-2.0) % Neut # (Auto) (1.40-7.00) K/uL Lymph # (Auto) (0.50-3.50) K/uL [place] # (Auto) (0.00-1.00) K/uL Eos # (Auto) (0.00-0.50) K/uL Baso # (Auto) (0.00-0.20) K/uL PT (9.5-12.0) SEC INR APTT (24.5-32.8) SEC D-Dimer, Quantitative (0-400) ng/mL Sodium (136-145) mmol/L Potassium (3.5-5.1) mmol/L Chloride (98-107) mmol/L Carbon Dioxide (21.0-32.0) mmol/L BUN (7-18) mg/dL Creatinine (0.51-1.17) mg/dL Est Cr Clr Drug Dosing Estimated GFR (MDRD) mL/min Glucose (74-106) mg/dL Lactic Acid 4.1 H (0.4-2.0) mmol/L Uric Acid (2.6-7.2) mg/dL Calcium (8.5-10.1) mg/dL Magnesium (1.8-2.4) mg/dL Total Bilirubin (0.2-1.0) mg/dL AST (15-37) U/L ALT (12-78) U/L Alkaline Phosphatase (46-116) IU/L Creatine Kinase 79 (26-308) U/L Creatine Kinase Index 1.6 (0.0-2.5) % CK-MB (CK-2) 1.30 (0.00-3.60) ng/mL Troponin I 0.131 H* (0.000-0.056) ng/mL C-Reactive Protein (<=0.9) mg/dL NT-Pro-B Natriuret Pep (0-125) pg/mL Total Protein (6.4-8.2) g/dL Albumin (3.4-5.0) g/dL TSH, Ultra Sensitive (0.358-3.740) mIU/mL ANA Results - Last 24 hrs: None Med Orders - Current: Current Medications Acetaminophen (Tylenol) 650 mg RECTAL Q4H PRN PRN Reason: Fever Acetaminophen (Tylenol) 650 mg PO Q4H PRN PRN Reason: Pain (Mild 1-3)/fever Albuterol (Proventil Neb Soln) 2.5 mg NEB Q2H PRN PRN Reason: Dyspnea Albuterol/Ipratropium (Duoneb 3.0-0.5 Mg/3 Ml) 3 ml NEB Q4HRRT [facility] Last Admin: 09/21/20 08:17 Dose: 3 ml Documented by: Atropine Sulfate (Atropine 1% Ophth Soln) 0 ml SL Q4H PRN PRN Reason: SECRETIONS Last Admin: 09/21/20 10:51 Dose: 1 ml Documented by: Dexamethasone (Dexamethasone) 6 mg IVPUSH BEDTIME [facility] Famotidine (Pepcid) 20 mg IVPUSH Q24H ANUJ Furosemide (Lasix) 40 mg IVPUSH Q12H [facility] Last Admin: 09/21/20 02:43 Dose: 40 mg Documented by: Heparin Sodium (Porcine) (Heparin Sodium) 5,000 units SUBCUT Q8H [facility] Last Admin: 09/21/20 09:50 Dose: 5,000 units Documented by: Ceftriaxone Sodium 1 gm/ (Sodium Chloride) 100 mls @ 200 mls/hr IV Q12H [facility] Last Admin: 09/21/20 02:44 Dose: 200 mls/hr Documented by: Vancomycin HCl 1 gm/ Sodium (Chloride) 250 mls @ 165 mls/hr IV Q24H [facility] Last Admin: 09/21/20 03:05 Dose: 165 mls/hr Documented by: Sodium Chloride (Sodium Chloride 3%) 500 mls @ 100 mls/hr IV ASDIRECTED [facility] Last Admin: 09/21/20 05:20 Dose: 100 mls/hr Documented by: Potassium Chloride/Dextrose/Sod Cl (D5 1/2 Ns W/ 40 Meq/L Kcl) 1,000 mls @ 80 mls/hr IV ASDIRECTED [facility] Lorazepam (Ativan) 1 mg IVPUSH Q2HR PRN PRN Reason: Agitation Last Admin: 09/21/20 11:50 Dose: 1 mg Documented by: Morphine Sulfate (Morphine) 2 mg IVPUSH Q2H PRN PRN Reason: Agitation Last Admin: 09/21/20 10:45 Dose: 2 mg Documented by: Potassium Chloride (Klor-Con M20) 20 meq PO BID [facility] Last Admin: 09/21/20 08:24 Dose: Not Given Documented by: Sodium Chloride (Saline Flush) 10 ml FLUSH ASDIRECTED PRN PRN Reason: Keep Vein Open Last Admin: 09/21/20 10:45 Dose: 10 ml Documented by: Sodium Chloride (Saline Flush) 10 ml FLUSH Q12HR PRN PRN Reason: Keep Vein Open Discontinued Medications Atropine Sulfate (Atropine 0.1 Mg/Ml) 0.1 mg IVPUSH Q4H PRN PRN Reason: Other Dexamethasone (Dexamethasone) 6 mg IVPUSH ONETIME ONE Stop: 09/20/20 22:39 Last Admin: 09/20/20 23:09 Dose: 6 mg Documented by: Famotidine (Pepcid) 40 mg IVPUSH ONETIME ONE Stop: 09/20/20 22:35 Last Admin: 09/20/20 23:19 Dose: 40 mg Documented by: Lactated Ringer's (Ringers, Lactated) 1,000 mls @ 100 mls/hr IV ASDIRECTED [facility] [facility] Last Admin: 09/20/20 23:17 Dose: 100 mls/hr Documented by: Lorazepam (Ativan) 1 mg IVPUSH ONETIME ONE Stop: 09/20/20 22:53 Last Admin: 09/20/20 23:11 Dose: 1 mg Documented by: Lorazepam (Ativan) 1 mg IVPUSH ONETIME ONE Stop: 09/20/20 23:40 Last Admin: 09/20/20 23:53 Dose: 1 mg Documented by: Lorazepam (Ativan) 1 mg IVPUSH Q4H PRN PRN Reason: Agitation Last Admin: 09/21/20 02:42 Dose: 1 mg Documented by: Lorazepam (Ativan) 1 mg IVPUSH ONETIME ONE Stop: 09/21/20 03:23 Last Admin: 09/21/20 03:40 Dose: 1 mg Documented by: Morphine Sulfate (Morphine) 4 mg IVPUSH ONETIME ONE Stop: 09/20/20 23:40 Last Admin: 09/20/20 23:53 Dose: 4 mg Documented by: Morphine Sulfate (Morphine) 2 mg IVPUSH ONETIME ONE Stop: 09/21/20 03:23 Last Admin: 09/21/20 03:41 Dose: 2 mg Documented by: - Exam Quality Assessment: Reports: Supplemental Oxygen, Urine Catheter, DVT Prophylaxis. 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
[2020-09-21] MEDS ORDERED: Famotidine 20 MG/2 ML SDV IVPUSH SCH (20:00)
[2020-09-21] MEDS ORDERED: Dexamethasone 10 MG/ML SDV IVPUSH SCH (20:00)
== END 2020-09-21 14:05 | disposition expired | DRG 871 ==
LOC: LL.ED 22:28 → UNDOADMIN 09-21 00:22 → LL.MS 09-21 00:22
PROVIDERS: ADMIT Family Medicine; ATTEND Family Medicine
PROC: 5A09357 Assistance with Respiratory Ventilation, Less than 24 Consecutive Hours, Continuous Positive Airway Pressure (ICD-10-PCS; principal; 2020-09-20)
PROC: 8E0ZXY6 Isolation (ICD-10-PCS; 2020-09-20)
DX: A41.9 Sepsis, unspecified organism (principal); U07.1 COVID-19; J12.89 Other viral pneumonia; E87.1 Hypo-osmolality and hyponatremia; I11.0 Hypertensive heart disease with heart failure; I48.19 Other persistent atrial fibrillation; I42.9 Cardiomyopathy, unspecified; I45.2 Bifascicular block; J18.9 Pneumonia, unspecified organism; J44.0 Chronic obstructive pulmonary disease with (acute) lower respiratory infection; I13.0 Hypertensive heart and chronic kidney disease with heart failure and stage 1 through stage 4 chronic kidney disease, or unspecified chronic kidney disease; Z51.5 Encounter for palliative care; I50.9 Heart failure, unspecified; I25.10 Atherosclerotic heart disease of native coronary artery without angina pectoris; E79.0 Hyperuricemia without signs of inflammatory arthritis and tophaceous disease; F41.8 Other specified anxiety disorders; I49.3 Ventricular premature depolarization; D69.6 Thrombocytopenia, unspecified; R79.89 Other specified abnormal findings of blood chemistry; E88.09 Other disorders of plasma-protein metabolism, not elsewhere classified; R74.02 Elevation of levels of lactic acid dehydrogenase [LDH]; J30.9 Allergic rhinitis, unspecified; H91.93 Unspecified hearing loss, bilateral; I48.91 Unspecified atrial fibrillation; E78.00 Pure hypercholesterolemia, unspecified; I73.9 Peripheral vascular disease, unspecified; E78.5 Hyperlipidemia, unspecified; I49.5 Sick sinus syndrome; I51.7 Cardiomegaly; I08.0 Rheumatic disorders of both mitral and aortic valves; I45.10 Unspecified right bundle-branch block; I65.29 Occlusion and stenosis of unspecified carotid artery; K21.9 Gastro-esophageal reflux disease without esophagitis; K57.90 Diverticulosis of intestine, part unspecified, without perforation or abscess without bleeding; N40.0 Benign prostatic hyperplasia without lower urinary tract symptoms; N18.9 Chronic kidney disease, unspecified; M19.90 Unspecified osteoarthritis, unspecified site; M54.9 Dorsalgia, unspecified; G89.29 Other chronic pain; M10.9 Gout, unspecified; M81.0 Age-related osteoporosis without current pathological fracture; G62.9 Polyneuropathy, unspecified; E83.42 Hypomagnesemia; E03.9 Hypothyroidism, unspecified; M85.80 Other specified disorders of bone density and structure, unspecified site; D64.9 Anemia, unspecified; M71.21 Synovial cyst of popliteal space [Baker], right knee; Z96.649 Presence of unspecified artificial hip joint; Z96.653 Presence of artificial knee joint, bilateral; Z88.6 Allergy status to analgesic agent; Z85.46 Personal history of malignant neoplasm of prostate; Z79.01 Long term (current) use of anticoagulants; Z79.82 Long term (current) use of aspirin; Z79.899 Other long term (current) drug therapy; Z79.890 Hormone replacement therapy; Z95.0 Presence of cardiac pacemaker; Z98.41 Cataract extraction status, right eye; Z98.42 Cataract extraction status, left eye; Z98.890 Other specified postprocedural states; Z85.828 Personal history of other malignant neoplasm of skin
CPT/HCPCS: 36415; 71045; 80053; 82550; 82553; 83605; 83735; 83880; 84443; 84484; 84550; 85025; 85379; 85610; 85730; 86140; 87040 ×2; 93005; J1100; J2060 ×2; J2270; J3490; J7120; 51702; 93010; 96361; 96374; 96375; 96376; 99222; 99239; 99285-25; A9270-GY; J0696; J1644; J1940; J3370; J7040; J7050; J7620-GY